=== PATIENT | male | born 1965 | race Caucasian/White ===

== ENCOUNTER 2017-06-27 18:16 | Emergency (ER) | payer MEDICAID, SELFPAY ==
[2017-06-27 18:17] VITALS: BP 167/143; PULSE 111; RESP 18; TEMP 35.6; O2SAT 98; BMI 43.1
[2017-06-27] MEDS: Etomidate 20 MG/10 ML Vial IV (18:20)
[2017-06-27] MEDS: Succinylcholine Chloride 200 MG/10 ML Vial 100 MG IV (18:20)
--- NOTE | 2017-06-27 18:21 | ED.RN ---
1819.ETOMIDATE 20 MG FLUSHED WITH [address] SAT [address] POLK INTUBATING. SAT REMAINS 97
--- NOTE | 2017-06-27 18:22 | ED.RN ---
100 OF SUCC FOLLLOWED BY 10 CC FLUSH
--- NOTE | 2017-06-27 18:23 | ED.RN ---
ATTEMPT TO INTUBATE. 93 % ON ROOM AIR . VOMIT AND BLOOD NOTED TO BACK OF THROAT
--- NOTE | 2017-06-27 18:23 | ED.RN ---
SIZE 16 ROMANSH ALFARO INSERTED. CLEAR YELLOW. 7 1/2 ET TUBE PLACED.25 AT THE LIP GOOD COLOR CHANGE. SAT AT 94.. 98 % WITH INCREASED BAGGING
[2017-06-27 18:25] VITALS: BP 167/143; PULSE 99; RESP 20; O2SAT 100
--- NOTE | 2017-06-27 18:26 | EKG12_ITS ---
Test Reason : UNRESPONSIVE Blood Pressure : / mmHG Vent. Rate : 095 BPM Atrial Rate : 095 BPM P-R Int : 132 ms QRS Dur : 096 ms QT Int : 368 ms P-R-T Axes : 045 035 041 degrees QTc Int : 462 ms Normal sinus rhythm Nonspecific T wave abnormality Prolonged QT Abnormal ECG Confirmed by FRANCK BOYD, LAXMI ([id number]), editor news SURENDRA PALACIO ([id number]) on 07/01/2017 1:12:21 PM Referred By: JAM Confirmed By:LAXMI JUÁREZ MD
--- NOTE | 2017-06-27 18:26 | CT_ITS ---
STUDY: CT BRAIN WITHOUT CONTRAST REASON FOR EXAM: Male, 52 years old. RADIATION DOSAGE (If Supplied By Facility): CTDIvol = ( 44.99 ) mGy, DLP = ( 880.47 ) mGycm TECHNIQUE: Transaxial CT imaging of the brain was performed without administration of intravenous contrast material. Individualized dose optimization techniques were used for this CT. COMPARISON: None. FINDINGS: Normal soft tissue structures. Normal calvarium. ET tube and NG tube in place. Normal size ventricles and extra-axial spaces for the patient's age. Normal white matter tracts of the cerebral hemispheres. Normal basal ganglia and thalami. Normal brainstem. Normal cerebellum. There is no intracranial hemorrhage. There are no findings of an acute ischemic infarction. There is mild ethmoid sinus disease. CT/Brain/Head without Contrast IMPRESSION: Normal unenhanced CT scan of the brain. Electronically Signed: Harley Bajwa MD at 19:27 EST , Service support ,
--- NOTE | 2017-06-27 18:26 | RAD_ITS ---
STUDY: X-RAY CHEST REASON FOR EXAM: Male, 52 years old. ETT PLACEMENT TECHNIQUE: Single AP portable view of the chest. COMPARISON: None. FINDINGS: There is a feeding tube/ nasogastric tube noted. The tip is not seen because it extends off the film. There is an endotracheal tube in place. The tip is 47 mm above the luis alberto. The lungs are clear and expanded. There is no demonstrated pleural abnormality. There is borderline cardiomegaly. Normal mediastinum and malik. Normal visualized pulmonary arteries. Normal visualized aortic arch and descending thoracic aorta. Normal visualized thoracic spine. Normal visualized ribs, clavicles, and shoulders. There is no demonstrated abnormality of the visualized soft tissue structures of the upper abdomen. RAD/Chest 1 View (Portable) IMPRESSION: Normal x-ray examination of the chest.There is a feeding tube/ nasogastric tube noted. The tip is not seen because it extends off the film. There is an endotracheal tube in place. The tip is 47 mm above the luis alberto. Electronically Signed: Harley Bajwa MD at 18:50 EST , Service support ,
--- NOTE | 2017-06-27 18:26 | CT_ITS ---
STUDY: CT CERVICAL SPINE WITHOUT CONTRAST REASON FOR EXAM: Male, 52 years old. FALL DOWN 7 STAIRS, TWISTED NECK RADIATION DOSAGE (If Supplied By Facility): CTDIvol = ( 26.06 ) mGy, DLP = ( 623.29 ) mGycm TECHNIQUE: High resolution transaxial imaging was performed without contrast material. Sagittal and coronal images were reconstructed. Individualized dose optimization techniques were used for this CT. COMPARISON: None FINDINGS: Normal craniovertebral junction. Normal anterior atlantoaxial articulation. Normal odontoid process. ET tube and NG tube in place. Normal cervical lordosis. Normal vertebral bodies and posterior osseous elements. C2-3: Normal endplates. Normal disc height and morphology. Normal central canal and intervertebral neuroforamina. C3-4: Normal endplates. Normal disc height and morphology. Normal central canal and intervertebral neuroforamina. C4-5: Normal endplates. Normal disc height and morphology. Normal central canal and intervertebral neuroforamina. C5-6: There is endplate spondylosis of the vertebral body. Vacuum disc phenomenon. Mild bilateral facet arthropathy. Mild loss of intervertebral disc height. No fracture. C6-7: Normal endplates. Normal disc height and morphology. Normal central canal and intervertebral neuroforamina. C7-T1: Normal endplates. Normal disc height and morphology. Normal central canal and intervertebral neuroforamina. Normal visualized soft tissue structures. CT/Spine Cervical without Contras IMPRESSION: Mild degenerative findings at C5-6. Electronically Signed: Harley Bajwa MD at 19:42 EST , Service support ,
[2017-06-27] MEDS: LORazepam 2 MG/ML Syringe IV (18:30)
--- NOTE | 2017-06-27 18:30 | ED.RN ---
ATIVAN 2 MG IV GIVEN. BILATERAL RESTRAINTS PLACED
[2017-06-27] MEDS: 0.9% Normal Saline 1,000 ML 150 ML IV (18:34)
[2017-06-27] MEDS: Propofol 10MG/Ml 1,000 MG/100 ML Bottle 4.329 MG CONT INF (18:34)
--- NOTE | 2017-06-27 18:34 | ED.RN ---
diprovan at 10mck/kg/min.. 8.6 mls per hr initiated
--- NOTE | 2017-06-27 18:38 | ED.RN ---
[address] medication list attempted per external hx of meds recently filled
--- NOTE | 2017-06-27 18:38 | ED.VISSUMM ---
- ER Visit Summary Date of Service: 06/27/17 Chief Complaint: Fall, head injury and decreased mental status History of Present Illness: The patient is a 52 M who is unable to give any history. Patient was brought in by EMS. Per the relief master patient was at a friend's house. He was walking down the steps inside the home. He fell from one level steps down to the landing. Against the wall. Later I spoke to the patient's friend. He states he witnessed the fall. Patient came out of the room somewhat positives acting differently want to walk down the steps fell down the steps and landed awkwardly on the bottom of the landing and against the wall. He became rigid and may have had a seizure after he ate his head. Was breathing. But he would not respond to them. Patient has no seizure history according to his daughter. Upon arrival to the paramedics he had a decreased mental status. He has agonal respirations. And his head and neck were positioned awkwardly against the wall. Patient has a past medical history of high cholesterol. Physical Examination: Initial blood pressure 167/143. Temperature pending. Heart rate 111. He was being bagged he was 98% on 100% 02 being bagged. Do not see any obvious signs of trauma to his face. He does have a laceration most likely a bite to the left anterior aspect of the front of his tongue. There is some blood in his mouth. Emesis in his posterior pharynx. His eyes are close his left pupil is dilated about 4 mm the right is 2 mm there are obviously different size. He is in a c-collar. He is backboarded. Being bagged his lungs are clear. Heart is tachycardic rate about 110 no murmur. Chest wall has no bruising or crepitance. No subcu air. Abdomen is obese but soft. No signs of trauma. External exam is unremarkable. He is moving both the right upper and right lower extremity. He has some movement of left lower extremity and he has not moved in all the left upper extremity. Test Results: Chest x-ray shows no acute abnormality. Normal cardiac silhouette. ET tube is in good position above the luis alberto. Both lungs are inflated. I do not see any obvious rib fractures. I do not see any obvious pneumothorax. And the OG appears to be in the stomach. CT of his brain shows no acute intracranial bleed at this time but formal radiology interpretation is pending. CT C-spine reading is pending. His CBC and BMP are unremarkable. His PT and INR are normal. Emergency Department Course and Treatment: Patient was emergently intubated shortly after arrival due to his overall mental status which was a [place] Coma Scale of about 3. Following no commands. Patient was given IV etomidate 20, IV succinylcholine 100 mg. Intubated on the first attempt with a 7F ET tube. Bilateral breath sounds were heard. His O2 saturation was around 90 and quickly went back up to 100 with bagging. C-spine traction was maintained during intubation. He was immediately put back in the c-collar. Treatment Plan: Patient be on IV sedation with propofol. He has been given 2 mg IV of Ativan. Disposition: Transfer to a level 1 trauma center. We have already contacted [facility] and due to weather conditions they are not flying. The patient will be have to be transferred by ground. He spoke to [facility] 1 trauma center and accepted the patient in transfer. Impression: Acute fall down steps. Acute closed head injury Decreased level of consciousness with a [place] Coma Scale of 3. ET intubation by the ER. Rule out seizure This note was generated with [employer] dictation software. It may contain incorrect words, spelling, and punctuation that were not noted in review of the chart prior to signing ED Disposition - Plan for ED Patient: Chief Complaint: Unresponsive Referrals: Yovany Mendiola [Primary Care Provider] -
--- NOTE | 2017-06-27 18:47 | ED.DCSUM_ITS ---
- ER Visit Summary Date of Service: 06/27/17 Chief Complaint: Fall, head injury and decreased mental status History of Present Illness: The patient is a 52 M who is unable to give any history. Patient was brought in by EMS. Per the power plant engineer patient was at a friend's house. He was walking down the steps inside the home. He fell from one level steps down to the landing. Against the wall. Later I spoke to the patient's friend. He states he witnessed the fall. Patient came out of the room somewhat positives acting differently want to walk down the steps fell down the steps and landed awkwardly on the bottom of the landing and against the wall. He became rigid and may have had a seizure after he ate his head. Was breathing. But he would not respond to them. Patient has no seizure history according to his daughter. Upon arrival to the paramedics he had a decreased mental status. He has agonal respirations. And his head and neck were positioned awkwardly against the wall. Patient has a past medical history of high cholesterol. Physical Examination: Initial blood pressure 167/143. Temperature pending. Heart rate 111. He was being bagged he was 98% on 100% 02 being bagged. Do not see any obvious signs of trauma to his face. He does have a laceration most likely a bite to the left anterior aspect of the front of his tongue. There is some blood in his mouth. Emesis in his posterior pharynx. His eyes are close his left pupil is dilated about 4 mm the right is 2 mm there are obviously different size. He is in a c-collar. He is backboarded. Being bagged his lungs are clear. Heart is tachycardic rate about 110 no murmur. Chest wall has no bruising or crepitance. No subcu air. Abdomen is obese but soft. No signs of trauma. External exam is unremarkable. He is moving both the right upper and right lower extremity. He has some movement of left lower extremity and he has not moved in all the left upper extremity. Test Results: Chest x-ray shows no acute abnormality. Normal cardiac silhouette. ET tube is in good position above the luis alberto. Both lungs are inflated. I do not see any obvious rib fractures. I do not see any obvious pneumothorax. And the OG appears to be in the stomach. CT of his brain shows no acute intracranial bleed at this time but formal radiology interpretation is pending. CT C-spine reading is pending. His CBC and BMP are unremarkable. His PT and INR are normal. Emergency Department Course and Treatment: Patient was emergently intubated shortly after arrival due to his overall mental status which was a [place] Coma Scale of about 3. Following no commands. Patient was given IV etomidate 20, IV succinylcholine 100 mg. Intubated on the first attempt with a 7F ET tube. Bilateral breath sounds were heard. His O2 saturation was around 90 and quickly went back up to 100 with bagging. C-spine traction was maintained during intubation. He was immediately put back in the c-collar. Treatment Plan: Patient be on IV sedation with propofol. He has been given 2 mg IV of Ativan. Disposition: Transfer to a level 1 trauma center. We have already contacted [facility] and due to weather conditions they are not flying. The patient will be have to be transferred by ground. He spoke to [facility] 1 trauma center and accepted the patient in transfer. Impression: Acute fall down steps. Acute closed head injury Decreased level of consciousness with a [place] Coma Scale of 3. ET intubation by the ER. Rule out seizure This note was generated with [employer] dictation software. It may contain incorrect words, spelling, and punctuation that were not noted in review of the chart prior to signing ED Disposition - Plan for ED Patient: Chief Complaint: Unresponsive Referrals: Yovany Mendiola [Primary Care Provider] -
[2017-06-27 18:50] VITALS: PULSE 94; RESP 19; O2SAT 98
[2017-06-27 18:51] LABS: Absolute Lymphocyte Count 1.76 X10^3/ul (0.83-4.51); Absolute Neutrophil Count 6.1 X10^3/uL (2.0-7.7); Basophil# 0.02 X10^3/uL; Basophil% 0.2 % (0-1); Eosinophil# 0.18 X10^3/uL; Eosinophils% 2.1 % (0-5); Hematocrit 40.9 % (40-54); Hemoglobin 13.6 g/dl (13.0-16.5); Lymphocyte # 1.76 X10^3/ul (4.0); Lymphocyte % 20.3 % (19-41); Mean Corp Hgb Conc 33.3 g/gl (32-36); Mean Corpuscular Hgb 30.2 pg (27.0-32.0); Mean Corpuscular Volume 90.9 fL (80-94); Mean Platelet Vol. 8.3 fl (6.2-12.0); Monocyte# 0.56 X10^3/uL; Monocyte% 6.5 % (0-10); Neutrophil # 6.11 X10^3/uL (2.7-7.7); Neutrophil % 70.3 % (47-70); Platelet Count 432 K/mm3 (150-450); RBC Distribution Width CV 13.1 % (11.6-14.6); RBC Distribution Width SD 43.3 fl (35.1-43.9); White Blood Count 8.7 K/mm3 (4.4-11.0)
[2017-06-27 18:52] LABS: POSITIVE COUNT NO; POSITIVE DIFFERENTIAL NO; POSITIVE MORPHOLOGY NO
[2017-06-27 18:53] LABS: International Normalized Ratio 1.1; Prothrombin Time (Protime)PT. 13.6 SECONDS (11.7-14.9)
[2017-06-27 18:54] LABS: Anion Gap 13 (5-15); BUN 19 mg/dL (7-18); BUN/Creat Ratio 14.8 RATIO (10-20); Calcium,Total 9.3 mg/dL (8.5-10.1); Chloride 96 mmol/L (98-107); Creatinine, Serum 1.28 mg/dL (0.70-1.30); EST Glomerular Filtration Rate 62 mL/min (>60); Est Glom Filt Rate - Afr Amer 75 mL/min (>60); Estimated Creatinine Clearance 72.41 ml/min; Glucose 226 mg/dL (74-106); Partial Thromboplast Time 28.9 Seconds (24.1-36.2); Potassium 3.9 mmol/L (3.5-5.1); Sodium Level 134 mmol/L (136-145)
--- NOTE | 2017-06-27 19:00 | ED.RN ---
belongings include black cellphone in brown pouch, green pocketknife,blue jeans,brown belt, information technology architect, medication unlabeled,tape measure,orange information technology architect, yellow knife,black knife, fingernail clippers, brown wallet on chain, large selection of keys,green long sleeve shirt cut, red ss shirt cut off,camo underware cut off, hair comb and brown shoes
[2017-06-27 19:08] VITALS: BP 122/81; PULSE 90; RESP 16; O2SAT 98
[2017-06-27 19:09] LABS: Alcohol, Blood (Medical)-Serum < 3.0 mg/dL
--- NOTE | 2017-06-27 19:12 | ED.RN ---
belongings to family
[2017-06-27] MEDS: Midazolam 5 MG/ML Syringe IV (19:26)
[2017-06-27 19:28] VITALS: BP 124/81; PULSE 93; RESP 15; O2SAT 98
[2017-06-27 19:33] VITALS: BP 124/81; PULSE 93; RESP 15; TEMP 36; O2SAT 98
== END 2017-06-27 19:35 | disposition short-term general hospital (02) ==
PROVIDERS: Emergency Medicine; Emergency Provider Emergency Medicine
DX: S09.90XA Unspecified injury of head, initial encounter (principal); W10.9XXA Fall (on) (from) unspecified stairs and steps, initial encounter; Y93.9 Activity, unspecified; Y92.009 Unspecified place in unspecified non-institutional (private) residence as the place of occurrence of the external cause; Y99.9 Unspecified external cause status; R40.2430 Glasgow coma scale score 3-8, unspecified time; E78.00 Pure hypercholesterolemia, unspecified; I10 Essential (primary) hypertension; Z72.0 Tobacco use
CPT/HCPCS: 31500; 51702; 70450; 71045; 72125; 80048; 80320; 85025; 85610; 85730; 93005; 94002; 99251; 99285; J7030; A4216; G0463; G0480; J0330

== ENCOUNTER 2017-11-01 09:30 | Outpatient (RCR) | payer MEDICAID, SELFPAY ==
--- NOTE | 2017-08-21 12:12 | HP.PTEVAL ---
Patient's Visit Information GABRIELLA HAZEL is a 52 year old M referred to Physical Therapy by Out of Town Doctor with a diagnosis of Intracranial hemorrhage, TBI, impaired cognition. Date of Evaluation: 08/21/17 Physical Therapist: Rosanna Schulz - Visit Plan Frequency: 3x /Week Duration: 4 Weeks Plan: 3X/ week for 4 weeks for gait training, balance training, LE strength, functional activities, coordination, motor planning with HEP - Subjective Subjective: Pt blacked out and fell down the stairs and hit head on the way down. He was taken to the hospital by squad and was in inpatient Rehab at [facility] and was in there for almost 2 months. He got out of [facility] last Sat. His brother lives with him and he watches out for him. He is using the walker when out and about and at home he uses the Quad cane in his house. He is not driving. His brother brings him to his appointments. He likes to sit around and watch movies all day. Sat and Mondays he goes and watches a friend of him bowl. Pt reports that he does not fall and he has pretty good balance. He feels weak sometimes in the morning. Stairs: he lives on one floor. He goes up 1 step onto his prch and holds onto something. He is unemployed at this time due to diabled due to DDD in back. He reports that he is having some trouble with memory. Pt reports that he showers in a shower chair. Pt then reports that he has fallen once and that was in the bedroom and landed on his back and it did not hurt too bad. Pt reports that he does not have a follow up with a Dr and he does not have a PCP but will try and get one set up. - Objective Gait: Walks into dept with a rolling walker with SBA. Walked about 75 feet with a WBQC with CGA to min A with wide base of support. Was able to walk without the walker with Odilon and WBOS and not as steady as with the WBQC. Stairs: Up and down stairs with 1 Quad cane and 1 railing going up the stairs with the L leg and descending stairs with a L cane with 2 feet to a stair. LE MMT:hip flex R 4-/5 and L 3+/5, knee ext B 4-/5, knee flex B 4-/5, hip abd L 3+/5 and R 4-/5. Pt was able to do a 1/2 normal ROM bridge. Heel and toe raise: unable to do unless uses UE support. sit to stand without use of his UE's with WBOS with minimal struggle. FGA 6. Tight gastroc and HS complex B - Balance Scores Functional Gait Assessment Score: 6 % Disability: 80.0000 - Goals Goal 1:: I HEP Goal Time Frame: 4-6 Weeks Goal 2:: Increase LE strength to 4/5 B hips and knees to increase ability to function at home Goal Time Frame: 4-6 Weeks Goal 3:: Increase balance to decrease fall risk (shoot for FGA of 12). Goal Time Frame: 4-6 Weeks Goal 4:: Be able to walk 250 feet with no AD with SBA without any signs of LOB Goal Time Frame: 4-6 Weeks - Rehabilitation Potential Rehabilitation Potential: Good - Anticipated Interventions Patient/Client Instruction: Educate patient on: Plan of Care For the Purpose of:: To improve muscle performance and motor function, To improve ability to perform ADL's, To increase tolerance to activity/condition/position, To improve performance and independence with ADL's, To improve ability of physical actions for home/community/work/leisure, To improve gait and locomotor functions, To improve balance, To improve safety with gait Therapeutic Exercise to Include: Strength training, Endurance training, Balance training, Coordination, Body mechanics, Flexibilty training, Gait and locomotor training, Passive ROM, Active ROM For the Purpose of:: To improve muscle performance and motor function, To improve ability to perform ADL's, To increase tolerance to activity/condition/position, To improve performance and independence with ADL's, To decrease level of supervision to perform tasks, To improve ability of physical actions for home/community/work/leisure, To improve gait and locomotor functions, To increase flexibility/ROM, To improve balance, To improve safety with gait Functional Training to Include: Gait training For the Purpose of:: To improve gait and locomotor functions, To improve safety with gait Thank you for the opportunity to evaluate your patient. For Medicare and Medicare HMO plans, please review the plan of care and approve it. It will need to be FAXED BACK to us at [phone] for Medicare purposes. Please let me know if there are questions or concerns regarding this plan of care. Physician Signature: Date:
--- NOTE | 2017-09-26 18:21 | HP.SP.DC ---
ST Discharge Summary - Discharged: Discharge: Pt. presents with mild cognitive deficits in line with reported baseline cognitive abilities following a previous traumatic brain injury (1997) recently complicated by a recent intracranial hemorrhage resulting in a prolonged hospitalization. Discussed results and recommendations following the cognitive communication assessments, and anticipated therapeutic goals, though the Pt. reporting assessment results were similar to expected results if the assessment were to be completed prior to the most recent hospitalization, and were actually better than he had anticipated, and expressed desires to discharge from skilled speech-language intervention, preferring to focus on social activities and physical therapy. Encouraged the Pt. to contact his primary care physician if any changes in cognitive communication abilities are noted, as the Pt. would be appropriate for intervention if deficits are noted that complicate daily functioning. Pt. expressing agreement and understanding. Will discharge from caseload this date.
--- NOTE | 2017-11-01 09:59 | HP.PTDCSUM ---
HP - PT D/C Summary It has been my pleasure to treat GABRIELLA HAZEL under orders from IZABELA COLEY, for the diagnosis of Intracranial hemorrhage, TBI, impaired cognition for a total of 10 visit(s). Discharge Date: 11/01/17 Please see the following information for a summary of their discharge status. - Subjective Subjective: Pt reports that he is doing a lot better and is hoping to be done with us. He reports that he can walk around the house without the walking stick and that he can step down off the front porch without the use of any railing. Pt reports that he is not having any trouble with anything. Pt has been doing sit to stands from a chair on his porch. Back to small gardening.... - Overall Improvement % Improvement: 90 - Objective Objective/Function: Gait: able to walk complet lap around dept 340 feet without AD and without veering. LE MMT: B hip flex 4-/5, B hip abd 4-/5, full complete bridge, B knee flex and knee ext 4+/5. FGA: 22 - Goals Goal 1:: I HEP Goal Progress: Goal Met Goal 2:: Increase LE strength to 4/5 B hips and knees to increase ability to function at home Goal Progress: Progressing Goal 3:: Increase balance to decrease fall risk (shoot for FGA of 12). Goal Progress: Goal Met Goal 4:: Be able to walk 250 feet with no AD with SBA without any signs of LOB Goal Progress: Goal Met - Plan Plan: DC PT to HEP. Issued Standing kitchen sink hip flex and standing hip abd - D/C Information Discharge Comments: DC TO HEP If there are questions or concerns regarding this patient's physical therapy, please feel free to call me at [phone]. Thank you for the referral of this patient. Sincerely, Rosanna Schulz
== END 2017-11-01 19:00 | disposition home or self-care (01) ==
LOC: PT 09:30
DX: I69.228 Other speech and language deficits following other nontraumatic intracranial hemorrhage (principal); Z86.79 Personal history of other diseases of the circulatory system; S06.9X0D Unspecified intracranial injury without loss of consciousness, subsequent encounter; R41.89 Other symptoms and signs involving cognitive functions and awareness; I10 Essential (primary) hypertension; E78.2 Mixed hyperlipidemia; J96.01 Acute respiratory failure with hypoxia; G93.40 Encephalopathy, unspecified; T14.90XD Injury, unspecified, subsequent encounter
CPT/HCPCS: 92507; 92523; 97110; 97161; 97530

== ENCOUNTER 2018-01-03 21:26 | Observation (INO) | payer MEDICAID, SELFPAY ==
[2018-01-03 21:27] VITALS: BP 146/93; PULSE 90; RESP 16; TEMP 37.2; O2SAT 99; BMI 28.2
[2018-01-03 22:26] VITALS: BP 142/89; PULSE 80; RESP 12; O2SAT 99
[2018-01-03 22:36] LABS: Absolute Lymphocyte Count 0.81 X10^3/ul (0.83-4.51); Absolute Neutrophil Count 7.7 X10^3/uL (2.0-7.7); Basophil# 0.01 X10^3/uL; Basophil% 0.1 % (0-1); Eosinophil# 0.12 X10^3/uL; Eosinophils% 1.3 % (0-5); Hematocrit 40.9 % (40-54); Hemoglobin 13.4 g/dl (13.0-16.5); Lymphocyte # 0.81 X10^3/ul (4.0); Lymphocyte % 8.9 % (19-41); Mean Corp Hgb Conc 32.8 g/gl (32-36); Mean Corpuscular Hgb 30.4 pg (27.0-32.0); Mean Corpuscular Volume 92.7 fL (80-94); Mean Platelet Vol. 8.4 fl (6.2-12.0); Monocyte# 0.47 X10^3/uL; Monocyte% 5.2 % (0-10); Neutrophil # 7.67 X10^3/uL (2.7-7.7); Neutrophil % 84.3 % (47-70); Platelet Count 445 K/mm3 (150-450); RBC Distribution Width CV 14.2 % (11.6-14.6); RBC Distribution Width SD 48.2 fl (35.1-43.9); Red Blood Count 4.41 M/mm3 (4.6-6.2); White Blood Count 9.1 K/mm3 (4.4-11.0)
[2018-01-03 22:37] LABS: POSITIVE COUNT NO; POSITIVE DIFFERENTIAL NO; POSITIVE MORPHOLOGY NO
[2018-01-03 22:44] LABS: ALB/GLOB Ratio 0.9 RATIO (0.9-2.4); AST(SGOT) 9 U/L (15-37); Alanine Aminotransfer ALT/SGPT 10 U/L (16-61); Albumin, Serum 3.6 g/dL (3.2-5.0); Alkaline Phosphatase 80 U/L (45-117); Anion Gap 14 (5-15); BUN 10 mg/dL (7-18); BUN/Creat Ratio 11.4 RATIO (10-20); Calcium,Total 9.1 mg/dL (8.5-10.1); Chloride 104 mmol/L (98-107); Creatinine, Serum 0.88 mg/dL (0.70-1.30); EST Glomerular Filtration Rate 96 mL/min (>60); Est Glom Filt Rate - Afr Amer 116 mL/min (>60); Estimated Creatinine Clearance 99.08 ml/min; Globulin 3.8 g/dL (2.2-4.2); Glucose 103 mg/dL (74-106); Potassium 3.3 mmol/L (3.5-5.1); Protein, Total 7.4 g/dL (6.4-8.2); Sodium Level 144 mmol/L (136-145)
[2018-01-03 22:47] LABS: Bacteria 0 SEEN /hpf (None Seen); Red Blood Cells-Urine 0 SEEN /hpf (0-5); Squamous Epithelial Cells - UA 0 SEEN /hpf (0-5)
[2018-01-03 22:55] LABS: Color, Urine Amber (Yellow); Glucose, Dipstick Normal (Normal); Ketone-Dipstick 50 mg/dl (Negative); Leukocyte Esterase-Dipstick 25 /ul (Negative); Nitrite-Dipstick Negative (Negative); Occult Blood-Urine 10 /ul (Negative); Protein-Dipstick 30 mg/dl (Negative); Specific Gravity, Urine 1.025 (1.002-1.030); Urine Clarity Sl. Cloudy (Clear); Urine Urobilinogen 4 mg/dl (Normal)
--- NOTE | 2018-01-03 23:01 | ED.DCSUM_ITS ---
- ER Visit Summary Date of Service: 01/03/18 Chief Complaint: Not caring for himself History of Present Illness: The patient is a 52 M with no primary care physician. Family reports that since he fell in June he has been much different. At that time he had a traumatic brain injury with tiny bleeds. He had a seizure at that time and was on medications for this. He has run out of these and has not followed up with her primary care physician. His brother was staying with him until October and then was kicked out. Since that time the patient is not caring for himself at all. EMS was called to his house [place]. They report the house is in disarray. There is a dog that is in early stages of decomposition in the house. The patient clearly has not showered for days. He has stooled in his pants and is still wearing these. Review of systems: General: No fever, chills, cold sweats. Cardiovascular: No chest pain, palpitations. Respiratory: No shortness of breath, dyspnea on exertion. Gastrointestinal: No abdominal pain, nausea, vomiting, diarrhea, melena, or hematochezia. Genitourinary: No dysuria, frequency, hematuria. Skin: No rash. Neuro: No headache, numbness, weakness. Physical Examination: Vitals: Stable. Afebrile. General: Well-nourished and well-developed. Unkempt. Head: Normocephalic atraumatic. Neck: Supple, no lymphadenopathy. No JVD. Nontender. Cardiovascular: Regular rate and rhythm. No murmurs. Respiratory: No respiratory distress. Clear to auscultation bilaterally. Abdominal: Soft, nontender, nondistended, normal bowel sounds. No guarding, rebound, or peritoneal signs. Back: Nontender. Extremities: Nontender, no edema. Skin: Normal color, no rash. Neurologic: Alert and oriented ?3. Cranial nerves II through XII are intact. Normal strength and sensation. Psych: Normal affect. Test Results: CT head shows no acute disease. EKG is sinus at 80 with no acute changes. UA is negative. LFTs marked for an ALT of 10 and AST of 9. Chem-7 marked potassium 3.3. Blood alcohol level is 0. CBC is marked for segment neutrophils 84 lymphs lites of 9. Emergency Department Course and Treatment: Patient was taken out of his dirty clothes. He was allowed to shower here. We did contact Adult Protective Services and had to leave a message. Treatment Plan: Clearly the patient cannot care for himself at home. He will be admitted to the hospital overnight and seen by case management to find community resources. Disposition: Admitted in stable condition. Impression: 1. Inability to care for himself. 2. History of traumatic brain injury. This note was generated with [employer] dictation software. It may contain incorrect words, spelling, and punctuation that were not noted in review of the chart prior to signing ED Disposition - Plan for ED Patient: Chief Complaint: Mental Health Referrals: Care Physician,No Primary [Primary Care Provider] -
[2018-01-03 23:02] LABS: Urine Bilirubin Dipstick 3 mg/dL (Negative)
[2018-01-03 23:03] LABS: Calcium Oxalate Crystals Ur RARE /hpf (<or=2+); Mucous, Urine 2+ /hpf (<or=2+); White Blood Cells 0-5 SEEN /hpf (0-5)
--- NOTE | 2018-01-03 23:49 | ED.RN ---
[facility], new clothing given to patient at this time
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
--- NOTE | 2018-01-03 23:57 | PCM.HP.STD ---
Problem List (1) Traumatic brain injury Status: Chronic (2) Seizure disorder Status: Chronic (3) Recurrent falls Status: Chronic (4) Failure to thrive Status: Acute (5) Moderate protein-calorie malnutrition Status: Chronic History of Present Illness Date of Admission: 01/04/18 Chief Complaint: Patient not able to take care of himself The patient is a 52 year old M with history of traumatic brain injury secondary to fall with tiny intracranial bleed for which she was admitted in [facility] for 10 days, intubated and then discharged to SNF from where he returned home in August 2017. As per her daughter near the bedside, he was taking care of himself for about 1 month and then later slowly deteriorated with regard to nutrition, physical activity, activities of daily living. Patient has gait disequilibrium and uses cane. He did not respond to the telephone to call. Later today, daughter entered into the house after getting saldaña from the neighbor she has found house in total disarray, decomposed dog and patient with the stool is spent not able to take care of himself. It seems that patient has not taken shower and not able to proper nutrition for days. He admitted that he has urinary and fecal incontinence. He has poor oral hygienic with gingivitis. In ED, he was found in bed order with poor general condition. Vitals are stable. EKG shows normal sinus rhythm. [] Past Medical History Past Medical History (Chronic Problems): Chronic Problems Traumatic brain injury (Chronic) Seizure disorder (Chronic) Recurrent falls (Chronic) Moderate protein-calorie malnutrition (Chronic) Allergies latex Allergy (Verified 01/03/18 21:27) Rash Penicillins Allergy (Verified 01/03/18 21:27) Swelling Home Medications: Ambulatory Orders Medication Instructions Recorded Aspirin [Aspirin, Baby] 81 mg PO DAILY@0800 06/02/16 Gemfibrozil [Lopid] 600 mg GT BIDAC 06/02/16 Lisinopril/Hydrochlorothiazide 1 tablet PO DAILY 06/02/16 [Zestoretic Tablet] Smoking Status: Unknown if ever smoked Review of Systems Constitutional: Reports: Anorexia, Weakness, Fatigue HEENT: Denies: Head Aches, Sinus Congestion, Sinus Drainage Cardiovascular: Denies: Chest Pain, Palpitations Respiratory: Denies: Shortness of breath at rest, Sputum production Gastrointestinal: Denies: Abdominal Pain, Nausea, Vomiting Genitourinary: Reports: Incontinence. Denies: Dysuria Musculoskeletal: Reports: Joint swelling Skin: Denies: Rash, Wounds Neurological: Reports: Balance problems, Incoordination Psychiatric: Denies: Depression, Homicidal Ideations, Suicidal Ideations Hematologic/ Lymphatic: Denies: Easy Bruising, Easy Bleeding Unable to obtain accurate/complete ROS d/t: Patient symptoms difficulty in understanding VTE Information - Inpt Only VTE Present on Admission: No VTE Mechan Device Prophylaxis: None VTE Pharm Prophylaxis ordered?: Yes Patient Problems: Active and Suspected Problems Failure to thrive (Acute) - Physical Exam General: Alert, Oriented x3, Cooperative HEENT: Atraumatic, PERRLA, EOMI, Normocephalic Oral: Dry Mucosa Neck: Supple, No JVD, Negative Carotid Bruits Lungs: Clear to auscultation, No rhonchi, No wheeze, No rales, Diminished Cardiovascular: Regular rate, Regular Rhythm, Normal S1, Normal S2, No murmurs Abdomen: Bowel Sounds Present, Soft, Non Tender, Non-Distended Extremities: Capillary Refill Less than 3 Seconds, Edema Skin: No rashes, No breakdown Musculoskeletal: No Tenderness to Palpation of Joints or Extremities, Arthritic Changes, Muscle Wasting Neurological: Cranial nerves II-XII grossly intact, - - Slow to respond Psych/Mental Status: Normal Affect, Appropriate Vital Signs Temp Pulse Resp BP Pulse Ox 99 F 80 12 142/89 H 99 01/03/18 21:27 01/03/18 22:26 01/03/18 22:26 01/03/18 22:26 01/03/18 22:26 Oxygen Delivery Method Room Air Weight: 196 lb 9.6 oz Body Mass Index (BMI) 28.2 Laboratory Tests Past 24 Hrs 01/03/18 01/03/18 01/03/18 22:15 22:15 22:15 WBC 9.1 RBC 4.41 L Hgb 13.4 Hct 40.9 MCV 92.7 MCH 30.4 MCHC 32.8 RDW 14.2 RDW Differential 48.2 H Plt Count 445 MPV 8.4 Immature Gran % (Auto) 0.200 Neut % (Auto) 84.3 H Lymph % (Auto) 8.9 L [place] % (Auto) 5.2 Eos % (Auto) 1.3 Baso % (Auto) 0.1 Absolute Neuts (auto) 7.7 Absolute Lymphs (auto) 0.81 L Total Counted Not Reportable Sodium 144 Potassium 3.3 L Chloride 104 Carbon Dioxide 26.0 Anion Gap 14 BUN 10 Creatinine 0.88 Estim Creat Clear Calc 99.08 Est GFR (MDRD) Af Amer 116 Est GFR (MDRD) Non-Af 96 BUN/Creatinine Ratio 11.4 Glucose 103 Calcium 9.1 Total Bilirubin 0.50 AST 9 L ALT 10 L Alkaline Phosphatase 80 Total Protein 7.4 Albumin 3.6 Globulin 3.8 Albumin/Globulin Ratio 0.9 Urine Color Urine Clarity Urine pH Ur Specific [place] Urine Protein Urine Glucose (UA) Urine Ketones Urine Occult Blood Urine Nitrite Urine Bilirubin Urine Urobilinogen Ur Leukocyte Esterase Urine RBC Urine WBC Ur Squamous Epith Cells Calcium Oxalate Crystal Urine Bacteria Urine Mucus Ethyl Alcohol 13.0 01/03/18 22:40 WBC RBC Hgb Hct MCV MCH MCHC RDW RDW Differential Plt Count MPV Immature Gran % (Auto) Neut % (Auto) Lymph % (Auto) [place] % (Auto) Eos % (Auto) Baso % (Auto) Absolute Neuts (auto) Absolute Lymphs (auto) Total Counted Sodium Potassium Chloride Carbon Dioxide Anion Gap BUN Creatinine Estim Creat Clear Calc Est GFR (MDRD) Af Amer Est GFR (MDRD) Non-Af BUN/Creatinine Ratio Glucose Calcium Total Bilirubin AST ALT Alkaline Phosphatase Total Protein Albumin Globulin Albumin/Globulin Ratio Urine Color Terrie Urine Clarity Sl. Cloudy Urine pH 6.0 Ur Specific [place] 1.025 Urine Protein 30 H Urine Glucose (UA) Normal Urine Ketones 50 H Urine Occult Blood 10 H Urine Nitrite Negative Urine Bilirubin 3 H Urine Urobilinogen 4 H Ur Leukocyte Esterase 25 H Urine RBC 0 SEEN Urine WBC 0-5 SEEN Ur Squamous Epith Cells 0 SEEN Calcium Oxalate Crystal RARE Urine Bacteria 0 SEEN Urine Mucus 2+ Ethyl Alcohol Assessment/Plan All Active Problems Failure to thrive (Acute) The patient is a 52 year old M with history of traumatic brain injury secondary to fall with tiny intracranial bleed for which she was admitted in [facility] for 10 days, intubated and then discharged to SNF from where he returned home in August 2017. As per her daughter near the bedside, he was taking care of himself for about 1 month and then later slowly deteriorated with regard to nutrition, physical activity, activities of daily living. Patient has gait disequilibrium and uses cane. He did not respond to the telephone to call. Later today, daughter entered into the house after getting saldaña from the neighbor she has found house in total disarray, decomposed dog and patient with the stool is spent not able to take care of himself. It seems that patient has not taken shower and not able to proper nutrition for days. He admitted that he has urinary and fecal incontinence. He has poor oral hygienic with gingivitis. In ED, he was found in bed order with poor general condition. Vitals are stable. EKG shows normal sinus rhythm. 1. Generalized weakness, failure to thrive: Patient has moderate protein calorie mentation and is not able to take care of himself. Compromised activities of daily living including walking, fecal and urine incontinence. Patient is being admitted on [facility] floor. IV fluid half-normal saline with 20 mg of KCl. customer support manager consult. PT OT. Boss Dyer consult. CK ordered. Pre-albumin ordered. Stool softeners ordered. Patient needs SNF placement. 2. Moderate protein calorie malnutrition with poor oral hygiene: Needs nursing care. Nutritional supplement. 3. Mild hypokalemia: Potassium being replaced. 4. History of traumatic brain injury with intracranial bleed and seizure disorder: As per the home medications he is not on any antiseizure medications. 5. Hypertension, dyslipidemia: Continue home medication including aspirin, Lopid. Hold antihypertensive medications but follow the blood pressure trends. Blood pressure gets high, resume antihypertensive medication. DVT prophylaxis on Lovenox 40 mils subcu daily. [] Laboratory Results 01/03/18 22:15: WBC 9.1, RBC 4.41 L, Hgb 13.4, Hct 40.9, MCV 92.7, MCH 30.4, MCHC 32.8, RDW 14.2, RDW Differential 48.2 H, Plt Count 445, MPV 8.4, Immature Gran % (Auto) 0.200, Neut % (Auto) 84.3 H, Lymph % (Auto) 8.9 L, [place] % (Auto) 5.2, Eos % (Auto) 1.3, Baso % (Auto) 0.1, Absolute Neuts (auto) 7.7, Absolute Lymphs (auto) 0.81 L, Total Counted Not Reportable 01/03/18 22:15: Sodium 144, Potassium 3.3 L, Chloride 104, Carbon Dioxide 26.0, Anion Gap 14, BUN 10, Creatinine 0.88, Estim Creat Clear Calc 99.08, Est GFR (MDRD) Af Amer 116, Est GFR (MDRD) Non-Af 96, BUN/Creatinine Ratio 11.4, Glucose 103, Calcium 9.1, Total Bilirubin 0.50, AST 9 L, ALT 10 L, Alkaline Phosphatase 80, Total Protein 7.4, Albumin 3.6, Globulin 3.8, Albumin/Globulin Ratio 0.9 01/03/18 22:15: Ethyl Alcohol 13.0 01/03/18 22:40: Urine Color Terrie, Urine Clarity Sl. Cloudy, Urine pH 6.0, Ur Specific [place] 1.025, Urine Protein 30 H, Urine Glucose (UA) Normal, Urine Ketones 50 H, Urine Occult Blood 10 H, Urine Nitrite Negative, Urine Bilirubin 3 H, Urine Urobilinogen 4 H, Ur Leukocyte Esterase 25 H, Urine RBC 0 SEEN, Urine WBC 0-5 SEEN, Ur Squamous Epith Cells 0 SEEN, Calcium Oxalate Crystal RARE, Urine Bacteria 0 SEEN, Urine Mucus 2+ Code Visit OBSV E&M: 51024 Initial observation care L3
[2018-01-04 01:01] VITALS: BP 143/79; PULSE 67; RESP 16; TEMP 36.9; O2SAT 100
[2018-01-04 01:10] VITALS: BMI 28.2
[2018-01-04 02:00] VITALS: BMI 27.1
[2018-01-04] MEDS: Enoxaparin 40 MG/0.4 ML Syringe SC (03:18)
[2018-01-04 05:37] VITALS: BP 130/74; PULSE 68; RESP 14; TEMP 37; O2SAT 99
[2018-01-04 07:42] LABS: Anion Gap 12 (5-15); BUN 12 mg/dL (7-18); BUN/Creat Ratio 16.9 RATIO (10-20); CPK Total, Creatine Kinase 21 U/L (39-308); Calcium,Total 8.3 mg/dL (8.5-10.1); Chloride 107 mmol/L (98-107); Creatinine, Serum 0.71 mg/dL (0.70-1.30); EST Glomerular Filtration Rate 122 mL/min (>60); Est Glom Filt Rate - Afr Amer 148 mL/min (>60); Estimated Creatinine Clearance 122.81 ml/min; Glucose 120 mg/dL (74-106); Potassium 3.4 mmol/L (3.5-5.1); Prealbumin 11.1 mg/dL (20.0-40.0); Sodium Level 146 mmol/L (136-145)
--- NOTE | 2018-01-04 08:46 | CASEMGMT ---
Social Work Assessment Referral date: 01/03 Date of Assessment: 01/04 Reason for Consult: Self Neglect (d/t age cannot make APS report) Informant: Marbin Bo MD Personal Status: Pt presents with blunted affect as evidenced by normal amplitude but very limited range of emotional expression. Pt is slow to respond, but comprehends context of conversation and responds appropriately. A&Ox4. Reports to live alone in a first level apartment with approximately 2 steps to enter and no handrails. Pt denies use of DME or any DME in the home, but does use a walking stick. Denies that this is a cane, but reports that he would use one if he had one. Inform that PT/OT has been ordered and if they recommend use of DME SW can assist with ordering for home use. Inquire if PT/OT would indicate further need for inpatient skilled therapy if the pt would be agreeable and he states he would and his first choice would be [facility]. Pt suffered a fall earlier this year and sustained a TBI. He went to [facility] following this and was discharged in August of this year. Denies any difficulty with ADL's. Upon further questioning he admits that he has not been cooking, and denies having any services such as MOW. Continues to deny difficulty with dressing, bathing, etc. Review his presentation upon arrival to ED, and pt remains silent. Pt claims that he does have Medicaid - [employer] through [employer]. Denies any income source. Pt denies being employed prior to TBI. States that his niece assisted him in applying for disability, but he has not heard back from her regarding any further updates or need for further questioning regarding application process. Pt reports to have family that lives locally such as two brothers, his mother, and his daughter. His daughter, her fiance, and her three boys are presently at [facility] [facility]. States that they are working to find a place, and if they find one big enough they are hoping to move the pt in with them. Will continue to follow and assist and await for PT/OT evaluations for assistance with determining discharge plan. Substance Abuse Hx: Alcohol: Yes Pt reports hx of alcohol abuse. 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 Denies going to inpatient treatment and claims to have gone to AA. Denies any other drug use history. Mental Health Hx: Pt denies any mental health diagnoses. Denies seeing a counselor or psychiatrist. Review depression and anxiety symptoms and the pt denies any symptoms within the past two weeks. Denies SI or HI. Interventions: Initial assessment complete to identify potential psychosocial needs. SW to provide pt and family with additional information on disability. Resources - [employer], [employer], MOW, Counseling Services. Await PT/OT evaluation to assist with determination for discharge needs. Left referral on TCU/RU vm for potential RU candidate. Plan: SHIREEN Paredes, CORPORATE PLANNER, LEGAL COLLECTOR
[2018-01-04] MEDS: Aspirin 81 MG TAB.CHEW PO (09:18)
[2018-01-04] MEDS: Gemfibrozil 600 MG Tablet PO ×2 (09:18→17:16)
[2018-01-04 09:20] VITALS: BP 138/82; PULSE 71; RESP 18; TEMP 36.6; O2SAT 95
[2018-01-04] MEDS: 0.9% NaCl Peripheral Flush Adult/Peds IV ×3 (09:20→21:41)
--- NOTE | 2018-01-04 10:12 | PCM.PN.HOSP ---
Patient Problems: Active and Suspected Problems Failure to thrive (Acute) Subjective: States that he is not following at home. Denies any new weakness. Objective: It was noted to have several bedbugs on him was taken to another room in the previous room was sealed off. Vitals/I&O's: Vital Signs Temp Pulse Resp BP Pulse Ox 37.0 C 68 14 130/74 H 99 01/04/18 05:37 01/04/18 05:37 01/04/18 05:37 01/04/18 05:37 01/04/18 05:37 Oxygen Delivery Method Room Air Weight: 85.8 kg Body Mass Index (BMI) 27.1 Intake and Output for Last 24 Hours 01/02/18 01/03/18 01/04/18 23:59 23:59 23:59 Intake Total 400 / 400 Balance 400 / 400 General: No apparent distress, - - Slightly disheveled HEENT: Atraumatic, Normocephalic Oral: Moist Mucosa, - - Poor dentition Extremities: No edema, No Calf Tenderness Skin: No rashes, No breakdown Neurological: Motor Exam 5/5 strength throughout, Coordination normal, - - Finger to nose intact Psych/Mental Status: Normal Affect, Appropriate Laboratory Results 01/04/18 06:55: Sodium 146 H, Potassium 3.4 L, Chloride 107, Carbon Dioxide 27.0, Anion Gap 12, BUN 12, Creatinine 0.71, Estim Creat Clear Calc 122.81, Est GFR (MDRD) Af Amer 148, Est GFR (MDRD) Non-Af 122, BUN/Creatinine Ratio 16.9, Glucose 120 H, Calcium 8.3 L, Total Creatine Kinase 21 L, Prealbumin 11.1 L Current Medications Al Hydroxide/Mg Hydroxide (Mylanta Ii) 30 ml PO Q6H PRN PRN PRN Reason: Gastric burning Aspirin (Aspirin, Baby) 81 mg PO DAILY@0800 [facility] Last Admin: 01/04/18 09:18 Dose: 81 mg Enoxaparin Sodium (Lovenox) 40 mg SC DAILY@1000 [facility] Last Admin: 01/04/18 09:18 Dose: 40 mg Gemfibrozil (Lopid) 600 mg PO BIDAC [facility] Last Admin: 01/04/18 09:18 Dose: 600 mg Potassium Chloride/Sodium Chloride (Kcl 20meq In 0.45% Ns 1000ml) 1,000 mls @ 100 mls/hr IV .Q10H [facility] Stop: 01/04/18 10:19 Last Admin: 01/04/18 01:19 Dose: 100 mls/hr Nutritional Formula (Vinicio - [place] Flavor) 1 packet PO TIDCM [facility] Last Admin: 01/04/18 09:18 Dose: 1 packet Nutritional Formula (Lactose Free) (Ensure Enlive) 120 ml PO 4X/DAY [facility] Last Admin: 01/04/18 09:18 Dose: 120 ml Ondansetron HCl (Zofran) 4 mg IV Q8H PRN PRN PRN Reason: NAUSEA Oxycodone HCl (Oxyir) 5 mg PO Q4H PRN PRN PRN Reason: MOD-SEVERE PAIN (4-10/10) Psyllium Hydrophilic Mucilloid (Metamucil) 1 packet PO DAILY PRN PRN PRN Reason: CONSTIPATION Senna/Docusate Sodium (Senokot-S, Dee-Colace) 2 tablet PO BID PRN PRN PRN Reason: contipation Sodium Chloride () 5 - 30 ml IV UD PRN PRN Reason: SALINE FLUSH Last Admin: 01/04/18 09:20 Dose: 10 ml Medical Necessity - Tobacco Use Smoking Status: Former smoker Assessment/Plan All Active Problems Failure to thrive (Acute) 1. Failure to thrive Patient's home is in disarray and concerns are patient not adequately able to care for himself. Patient be evaluated by physical therapy and see if he would be a candidate for half-way facility Patient is open to going to a half-way facility if he qualifies for it. Patient has some good cursory strength on my logic assessment of him but physical therapy will help determine if he has any skillable needs. 2. Bedbug infestation No treatment Other than having field attendant go out to his house and treat that 3. DVT prophylaxis with Lovenox 4. Moderate protein malnutrition Prealbumin of 11 Started on supplements Code Visit Inpatient E&M: 94639 Subs Hosp L2
[2018-01-04 15:45] VITALS: BP 136/76; PULSE 66; RESP 18; TEMP 37.3; O2SAT 98
[2018-01-04] MEDS: traZODone 50 MG Tablet PO (21:41)
[2018-01-04 21:47] VITALS: BP 156/89; PULSE 67; RESP 18; TEMP 37.2; O2SAT 99
[2018-01-05 03:47] VITALS: BP 120/79; PULSE 68; RESP 16; TEMP 36.6; O2SAT 95
[2018-01-05] MEDS: Gemfibrozil 600 MG Tablet PO ×2 (06:58→16:42)
[2018-01-05] MEDS: Aspirin 81 MG TAB.CHEW PO (07:57)
[2018-01-05] MEDS: Enoxaparin 40 MG/0.4 ML Syringe SC (07:58)
[2018-01-05 08:00] VITALS: BP 115/70; PULSE 69; RESP 16; TEMP 36.8; O2SAT 100
--- NOTE | 2018-01-05 09:47 | PCM.PN.HOSP ---
Patient Problems: Active and Suspected Problems Failure to thrive (Acute) Subjective: Patient is daughter in the room and but his history. But states that after his traumatic brain injury patient multiple bleeds and then went to rehab. But since being at rehab at home patient has demonstrated profound inability to care for himself. Patient would have appointments for rehab or doctor's visits and then when he had a reminder calls. Patient would not recall canceling a more even having the appointments to begin with. Patient would be swelling himself and. Patient had a responsibility of caring for here because her nephew's dog and but when the family had heard from and went to his house they had noticed the dog was . Stated the dog was about 8 years old and was not previously known to be ill. They feel that it was due to neglect. And they think it at least a week prior because it was so putrid. Vitals/I&O's: Vital Signs Temp Pulse Resp BP Pulse Ox 36.8 C 69 16 115/70 100 01/05/18 08:00 01/05/18 08:00 01/05/18 08:00 01/05/18 08:00 01/05/18 08:00 Oxygen Delivery Method Room Air Weight: 85.8 kg Body Mass Index (BMI) 27.1 Intake and Output for Last 24 Hours 01/03/18 01/04/18 01/05/18 23:59 23:59 23:59 Intake Total 3128 / 3128 190 / 190 Output Total 0 / 0 Balance 3128 / 3128 190 / 190 General: Alert, - - Oriented ?2 HEENT: Atraumatic, Normocephalic Neck: No Nodes, Thyroid Normal Size and Texture Lungs: Clear to auscultation, Normal air movement, No rhonchi, No wheeze Cardiovascular: Regular rate, Regular Rhythm, Normal S1, Normal S2, No murmurs Abdomen: Bowel Sounds Present, Soft, Non Tender, Non-Distended, No Hepato-splenomegaly Extremities: No edema, No Calf Tenderness Current Medications Al Hydroxide/Mg Hydroxide (Mylanta Ii) 30 ml PO Q6H PRN PRN PRN Reason: Gastric burning Aspirin (Aspirin, Baby) 81 mg PO DAILY@0800 [facility] Last Admin: 01/05/18 07:57 Dose: 81 mg Enoxaparin Sodium (Lovenox) 40 mg SC DAILY@1000 [facility] Last Admin: 01/05/18 07:58 Dose: 40 mg Gemfibrozil (Lopid) 600 mg PO BIDAC [facility] Last Admin: 01/05/18 06:58 Dose: 600 mg Nutritional Formula (Vinicio - [place] Flavor) 1 packet PO TIDCM [facility] Last Admin: 01/05/18 07:58 Dose: 1 packet Nutritional Formula (Lactose Free) (Ensure Enlive) 120 ml PO 4X/DAY [facility] Last Admin: 01/05/18 07:58 Dose: 120 ml Ondansetron HCl (Zofran) 4 mg IV Q8H PRN PRN PRN Reason: NAUSEA Oxycodone HCl (Oxyir) 5 mg PO Q4H PRN PRN PRN Reason: MOD-SEVERE PAIN (4-1010) Psyllium Hydrophilic Mucilloid (Metamucil) 1 packet PO DAILY PRN PRN PRN Reason: CONSTIPATION Senna/Docusate Sodium (Senokot-S, Dee-Colace) 2 tablet PO BID PRN PRN PRN Reason: contipation Sodium Chloride () 5 - 30 ml IV UD PRN PRN Reason: SALINE FLUSH Last Admin: 01/04/18 21:41 Dose: 10 ml Trazodone HCl (Desyrel) 50 mg PO QHS PRN PRN PRN Reason: INSOMNIA Last Admin: 01/04/18 21:41 Dose: 50 mg Medical Necessity - Tobacco Use Smoking Status: Former smoker Assessment/Plan All Active Problems Failure to thrive (Acute) 1. Failure to thrive Patient's home is in disarray and concerns are patient not adequately able to care for himself. Patient be evaluated by physical therapy and see if he would be a candidate for jail facility Patient is open to going to a jail facility if he qualifies for it. Patient has some good cursory strength on my logic assessment of him but physical therapy will help determine if he has any skillable needs. Patient did well with therapy but the left and array of options for him, home versus home care versus SNF Discussed with patient's daughter that his main issue is his inability to care for himself since his traumatic brain injury. Patient has no insight as to the redness of his home and maintaining a schedule. Patient is certainly not capable of caring for himself. I told his daughter that we will see what else case management has to offer him and regards to if he is a candidate for snuff despite not really have any skilled needs or if he will need long-term placements. She did express interest in becoming his guardian. Patient currently does not have a medical power of [place] attorney nor guardian at this time. 2. Bedbug infestation No treatment Other than having cash register servicer go out to his house and treat that 3. DVT prophylaxis with Lovenox 4. Moderate protein malnutrition Prealbumin of 11 Started on supplements Code Visit Inpatient E&M: 82694 Subs Hosp L2
[2018-01-05 14:20] VITALS: BP 128/71; PULSE 67; RESP 18; TEMP 37.3; O2SAT 99
[2018-01-05] MEDS: oxyCODONE 5 MG Tablet PO (20:41)
[2018-01-05 20:42] VITALS: BP 112/64; PULSE 72; RESP 18; TEMP 37.6; O2SAT 99
[2018-01-05] MEDS: traZODone 50 MG Tablet PO (22:03)
[2018-01-05] MEDS: Menthol/Lanolin/Calamine/Znox 113 GM Tube 1 APPLIC TOPICAL (22:03)
[2018-01-06 03:12] VITALS: BP 126/85; PULSE 69; RESP 18; TEMP 36.2; O2SAT 97
[2018-01-06] MEDS: Gemfibrozil 600 MG Tablet PO ×2 (06:55→17:23)
[2018-01-06] MEDS: Menthol/Lanolin/Calamine/Znox 113 GM Tube 1 APPLIC TOPICAL ×3 (06:55→21:06)
[2018-01-06 08:51] VITALS: BP 114/78; PULSE 69; RESP 16; TEMP 37.1; O2SAT 97
[2018-01-06] MEDS: Enoxaparin 40 MG/0.4 ML Syringe SC (08:57)
[2018-01-06] MEDS: Aspirin 81 MG TAB.CHEW PO (08:58)
[2018-01-06] MEDS: oxyCODONE 5 MG Tablet PO ×2 (09:15→13:44)
--- NOTE | 2018-01-06 10:10 | PCM.PN.HOSP ---
Patient Problems: Active and Suspected Problems Failure to thrive (Acute) Subjective: Patient is a 52-year-old gentleman with history of traumatic brain injury brought to the hospital with inability to take care of himself Objective: GENERAL: in no apparent distress. HEENT: Clear conjunctiva, NECK; supple, normal thyroid, CHEST: Clear to auscultation bilaterally, HEART: Regular S1 S2, no audible murmurs ABDOMEN: soft, non-tender, normoactive bowel sounds, RECTAL: deferred EXTREMITIES: No edema, ONLINE TUTOR: Awake; SKIN: No Rash Vitals/I&O's: Vital Signs Temp Pulse Resp BP Pulse Ox 98.7 F 69 16 114/78 97 01/06/18 08:51 01/06/18 08:51 01/06/18 08:51 01/06/18 08:51 01/06/18 08:51 Oxygen Delivery Method Room Air Weight: 85.8 kg Body Mass Index (BMI) 27.1 Intake and Output for Last 24 Hours 01/04/18 01/05/18 01/06/18 23:59 23:59 23:59 Intake Total 3128 / 3128 990 / 990 680 / 680 Output Total 0 / 0 Balance 3128 / 3128 990 / 990 680 / 680 Current Medications Al Hydroxide/Mg Hydroxide (Mylanta Ii) 30 ml PO Q6H PRN PRN PRN Reason: Gastric burning Aspirin (Aspirin, Baby) 81 mg PO DAILY@0800 [facility] Last Admin: 01/06/18 08:58 Dose: 81 mg Calamine/Phenol (Calmoseptine Ointment) 1 applic TOPICAL TID [facility] PRN Reason: Protocol Last Admin: 01/06/18 06:55 Dose: 1 applicatio Enoxaparin Sodium (Lovenox) 40 mg SC DAILY@1000 [facility] Last Admin: 01/06/18 08:57 Dose: 40 mg Gemfibrozil (Lopid) 600 mg PO BIDAC [facility] Last Admin: 01/06/18 06:55 Dose: 600 mg Nutritional Formula (Vinicio - Trinity Flavor) 1 packet PO TIDCM [facility] Last Admin: 01/06/18 08:58 Dose: 1 packet Nutritional Formula (Lactose Free) (Ensure Enlive) 120 ml PO 4X/DAY [facility] Last Admin: 01/06/18 08:59 Dose: 120 ml Ondansetron HCl (Zofran) 4 mg IV Q8H PRN PRN PRN Reason: NAUSEA Oxycodone HCl (Oxyir) 5 mg PO Q4H PRN PRN PRN Reason: MOD-SEVERE PAIN (4-10/10) Last Admin: 01/06/18 09:15 Dose: 5 mg Psyllium Hydrophilic Mucilloid (Metamucil) 1 packet PO DAILY PRN PRN PRN Reason: CONSTIPATION Senna/Docusate Sodium (Senokot-S, Dee-Colace) 2 tablet PO BID PRN PRN PRN Reason: contipation Sodium Chloride () 5 - 30 ml IV UD PRN PRN Reason: SALINE FLUSH Last Admin: 01/04/18 21:41 Dose: 10 ml Trazodone HCl (Desyrel) 50 mg PO QHS PRN PRN PRN Reason: INSOMNIA Last Admin: 01/05/18 22:03 Dose: 50 mg Medical Necessity - Tobacco Use Smoking Status: Former smoker Assessment/Plan All Active Problems Failure to thrive (Acute) Patient is a 52-year-old gentleman with history of traumatic brain injury brought to the hospital with inability to take care of himself 1. Adult failure to thrive: Patient has been admitted to regular nursing floor requested for PT OT as well as social research assistant to assist with disposition 2. Traumatic brain injury; supportive care 3. Bedbug infestation contact precautions initiated 4. Moderate protein calorie malnutrition with prealbumin of 11 dietary supplementation initiated 5. Dyslipidemia patient is on gemfibrozil 6. DVT prophylaxis SC and Advance planning: Conversation initiated by by admitting physician continued patient currently does not have MPOA nor guardian. Saltation placed to social research assistant to assist; Time spent on discussion; 17 minutes Clinical Impression(s) from Imaging Studies Brain CT 01/03/18 22:38 IMPRESSION: Normal unenhanced CT scan of the brain. No acute findings in the brain Electronically Signed: Paddy Camp, at 22:52 EDT Tel , Service support , Active Medications Al Hydroxide/Mg Hydroxide (Mylanta Ii) 30 ml PO Q6H PRN PRN PRN Reason: Gastric burning Aspirin (Aspirin, Baby) 81 mg PO DAILY@0800 [facility] Last Admin: 01/06/18 08:58 Dose: 81 mg Calamine/Phenol (Calmoseptine Ointment) 1 applic TOPICAL TID [facility] PRN Reason: Protocol Last Admin: 01/06/18 06:55 Dose: 1 applicatio Enoxaparin Sodium (Lovenox) 40 mg SC DAILY@1000 [facility] Last Admin: 01/06/18 08:57 Dose: 40 mg Gemfibrozil (Lopid) 600 mg PO BIDAC [facility] Last Admin: 01/06/18 06:55 Dose: 600 mg Nutritional Formula (Vinicio - Trinity Flavor) 1 packet PO TIDCM [facility] Last Admin: 01/06/18 08:58 Dose: 1 packet Nutritional Formula (Lactose Free) (Ensure Enlive) 120 ml PO 4X/DAY [facility] Last Admin: 01/06/18 08:59 Dose: 120 ml Ondansetron HCl (Zofran) 4 mg IV Q8H PRN PRN PRN Reason: NAUSEA Oxycodone HCl (Oxyir) 5 mg PO Q4H PRN PRN PRN Reason: MOD-SEVERE PAIN (4-10/10) Last Admin: 01/06/18 09:15 Dose: 5 mg Psyllium Hydrophilic Mucilloid (Metamucil) 1 packet PO DAILY PRN PRN PRN Reason: CONSTIPATION Senna/Docusate Sodium (Senokot-S, Dee-Colace) 2 tablet PO BID PRN PRN PRN Reason: contipation Sodium Chloride () 5 - 30 ml IV UD PRN PRN Reason: SALINE FLUSH Last Admin: 01/04/18 21:41 Dose: 10 ml Trazodone HCl (Desyrel) 50 mg PO QHS PRN PRN PRN Reason: INSOMNIA Last Admin: 01/05/18 22:03 Dose: 50 mg Code Visit OBSV E&M: 24119 Observ/hosp same date L2 Procedures: 24328 Advncd Care Plan 30 Min
--- NOTE | 2018-01-06 10:32 | CASEMGMT ---
Social Work Note SW received call from Marti with [facility] stating she is unable to accept pt. SW placed a call to Leigha, quality management, to send referral to [facility] for pt. Plan: [facility] pending acceptance and pre-cert Nguyen Zuñiga UI UX WEB DEVELOPER, SALES AND MARKETING INTERN
--- NOTE | 2018-01-06 11:05 | CASEMGMT ---
Call placed to Gillian at [facility] informing her that referral packet would be faxed over. Also let Gillian know that if facility is able to accept patient, to go ahead and start pre-cert. Faxed referral packet ro [phone], confirmation rec'd. Leigha Claudio LPN Clinical Support
[2018-01-06 13:45] VITALS: BP 112/71; PULSE 71; RESP 16; TEMP 37.2; O2SAT 95
--- NOTE | 2018-01-06 15:16 | CASEMGMT ---
Social Work Note SW placed a call to Gillian at [facility]. Gillian states that she is able to accept pt and she will submit for pre-cert. Plan: [facility] pending pre-cert Nguyen Zuñiga MSW, CYTOGENETICS TECHNOLOGIST
--- NOTE | 2018-01-06 16:02 | CASEMGMT ---
Social Work Note ELISABETH spoke with Galina Chakraborty, social work professor, who informed this worker that completing form 34824 (Level of Care form) for pt may be beneficial to submit for insurance approval. ELISABETH completed form and faxed to Gillian at [facility] and informed Gillian to try and submit form with pre-cert in hopes that insurance will approve pt for SNF. Plan: [facility] pending pre-cert Nguyen Zuñiga ELECTRIC PLATER, CHINESE HERBALIST
--- NOTE | 2018-01-06 17:36 | NURSING ---
talked w/ long term care social worker Gabby regarding staff's concerns that comments have been made by patient that he does not want his daughter to be spending his money and concerns that pt's daughter has his debit card as well as comments made by pt's daughter. aware Gabby will talk with her assistant sales manager and will call back. discussed we can assist if pt wants to purse completing a police report. aware d/t age APS inappropriate per social work. above information discussed w/ primary RN
--- NOTE | 2018-01-06 17:49 | CM.ED ---
Social Work Note Call from MS3 material handling technician, Rama Hunt, expressing concern from nursing of pt's daughter allegedly stealing money from his bank account through his debit card. Concerns were originally expressed by the pt to staff. Reviewed concern with SS Dianetic Counselor as APS cannot be contacted since pt is A&Ox4 and not over the age of 60. If a conversation with his daughter does not suffice and he is not providing permission for her to use his funds, pt should be encouraged to file a police report for theft. Place call to Rama Hunt to update. Offer to come speak with pt regarding concern. Per Rama Hunt, the pt's daughter is presently visiting in his room and staff feels it would be a topic better suited for the pt when there are no visitors. Will update Fahad Zuñiga NURSE TRANSITIONAL, for follow-up tomorrow. Leigha Paredes, NURSE TRANSITIONAL, CLIENT ANALYST
--- NOTE | 2018-01-06 17:50 | NURSING ---
talked w/ Gabby social services assistant again regarding concern about pt's daughter and patients debit card. Informed Gabby that Primary RN was informed of her earlier response, that conversation with patient regarding police report will have to be done when pt's daughter not in room but RN doubtful pt wants to persue this. Aware Gabby to leave an email for Nguyen social services assistant to follow up tomorrow.
--- NOTE | 2018-01-06 17:50 | NURSING ---
HAILEY Patterson notified this RN that this morning she heard patient and his daughter discussing his debit card. She said that the patient told his daughter that he didn't want her spending all of his money from his debit card. Daughter replied that he is not going home and that it won't matter and that besides he still has $200-300 still in his account. This RN did not hear any of this discussion- only heard her say, in front of patient and this RN, that she had to go downstairs to meet her boyfriend to get money for her and her niece to eat. Notified smita August RN of information.
[2018-01-06 21:00] VITALS: BP 126/78; PULSE 65; RESP 16; TEMP 37; O2SAT 97
[2018-01-06] MEDS: traZODone 50 MG Tablet PO (22:00)
[2018-01-07 02:37] VITALS: BP 123/79; PULSE 65; RESP 16; TEMP 36.7; O2SAT 96
[2018-01-07] MEDS: Gemfibrozil 600 MG Tablet PO (06:39)
[2018-01-07] MEDS: Menthol/Lanolin/Calamine/Znox 113 GM Tube 1 APPLIC TOPICAL (06:40)
[2018-01-07 08:24] VITALS: BP 106/76; PULSE 59; RESP 18; TEMP 36.7; O2SAT 97
[2018-01-07] MEDS: Enoxaparin 40 MG/0.4 ML Syringe SC (08:28)
[2018-01-07] MEDS: Aspirin 81 MG TAB.CHEW PO (08:28)
--- NOTE | 2018-01-07 08:50 | CASEMGMT ---
Social Work Note SW faxed speech evaluation to Gillian at [facility]. Plan: [facility] pending pre-cert Nguyen Zuñiga BOOM MAN, SPINNING MULE OPERATOR
--- NOTE | 2018-01-07 10:30 | PCM.TXEXTCAR ---
- Diet 01/04/18 00:08 Diet: Regular Diet Food consistency:: Regular Liquid Consistency:: Regular/Thin - Wound(s) Forehead Wound Type: Abrasion - Therapies Physical Therapy: Eval and Treat Occupational Therapy: Eval and Treat - Allergies/Procedures Done in Hospital Allergies/Adverse Reactions: Allergies latex Allergy (Verified 01/03/18 21:27) Rash Penicillins Allergy (Verified 01/03/18 21:27) Swelling - Type of Care/Length of Stay Estimated LOS: Convalescent Care Less Than 30 days Type of Care Needed: Skilled Rehab Potential: Good Prognosis: Good - Additional Orders/Day of Discharge Day of Discharge: 01/07/18 - Dietary and Speech Recommendations Dietitian Recommendations/Changes: Rec d/c Vinicio bid as not indicated - instead, rec continue ONS medpass - also will provide CIB w/ meals for increased nutrition if consumed. Speech Linguistic Eval Summary: Pt. is a 52 YOM admitted to [facility] on 01/04/2018 d/t failure to thrive, unable to care for self s/p traumatic brain injury secondary to fall with small intracranial bleed. Pt.s PMHx is significant for prior traumatic brain injury with resulting impaired cognition, seizure disorder, recurrent falls, acute respiratory failure with hypoxia, essential hypertension, and moderate protein-calorie malnutrition. Pt. admitted to [facility] earlier this year d/t above mentioned traumatic brain injury secondary to fall with small intracranial bleed; intubated for 10 days; recently discharged home from SNF in August of 2017. According to family, the Pt. was able to care for himself for about a month, though slowly deteriorated in regards to nutrition, physical abilities, and performances of activities of daily living. Pt. furthermore was in charge of caring for a family dog, though when the family arrived to check on the Pt., the dog was found (dog was 8 years old w/out health complications; likely d/t neglect), w/ a strong and putrid odor that suggested the dog had passed at least days prior. Pt. was additionally found covered in his own feces and urine; currently on contact precautions d/t bedbugs. 01/03/2018 CT revealed a normal unenhanced CT scan of the brain; no acute findings in the brain. Pt.s daughter present, states intentions to care for the Pt. after a respite period to get home health care in place; though there are inherent complications in that the Pt.s daughter has 3 children of her own. In addition to this, it was brought to this clinicians attention that the Pt.s daughter currently resides at the [facility] and does not have a permanent residence. Pt. known to this clinician from 09/26/2017 outpatient skilled speech-language intervention session, where testing revealed a mild cognitive disorder that was, at the time, believed to be in line with reported baseline cognitive abilities following a previous traumatic brain injury (1997) as reported by the Pt.; upon review this session the Pt.s family insisted that no cognitive impairments were present, and that the Pt.s cognitive abilities have since deteriorated over the following months. Informal assessment was completed this date, as full assessment protocol was limited d/t isolation precaution placement; unable to utilize higher level cognitive assessment materials. Despite this, the Pt. clearly presents w/ exacerbations in attention / concentration, and safety awareness, in addition to rather significant deterioration in working memory / information recall, w/ the Pt. frequently and repetitively asking similar questions over a 45 minute period, furthermore noted to abandon safety protocols discussed not more than 5 minutes prior, w/ the Pt. noted to immediately self-ambulate despite discussing w/ this clinician. Pt. noted to attribute all cognitive issues and inability to care for self on the absence of his waking cane, and does not grasp the severity of his prior living situation despite directly addressing within the session, w/ the Pt. switching topics quite constantly in a tangential manner. Pt. clearly does not demonstrate the adequate insight into his current cognitive functioning, w/ the recent events paired w/ additional family information that was previously unavailable assisting to elucidate the severity of the Pt.s lack of insight. Pt. and Pt.s daughter identifying strategy training as the primariy goal w/ cognitive re-intervention, though cautioned the Pt. and family that strategy training will likely fail within the implementation phase if not provided an optimal environment for success (home stability and consistency). Further concerns persist w/ the anticipated discharge plan post SNF placement. Anticipated discharge to [facility] when medically stable. - Follow Up Care Primary Care Physician: Care Physician,No Primary [Primary Care Provider] -
--- NOTE | 2018-01-07 11:00 | CASEMGMT ---
Social Work Note ELISABETH received call from Gillian at [facility] stating that pre-cert has been obtained and pt is able to discharge today. ELISABETH faxed completed discharge paperwork to Gillian at [facility] including transfer to extended care facility, signed medication list and any scripts. Originals in SNF folder and copy on pt's chart. ELISABETH set up transportation through [facility] via wheelchair van for 12:00pm. Transportation form on SNF folder and copy on pt's chart. PAS/RR completed in HENS. Original in SNF folder and copy on pt's chart. SW in to update pt on discharge and transportation time. Pt's daughter present in room. ELISABETH informed pt that pre-cert has been obtained and he is able to discharge to [facility] today and transportation is set up for 12:00pm. Pt and pt's daughter states understanding. Pt's daughter asked this worker about filling out advanced directives. ELISABETH informed pt's daughter that this worker can provide Advanced Directives to pt and pt and his daughter can fill out advanced directives at [facility]. It should be noted that pt has a traumatic brain injury and cognitive impairment and this worker didn't feel comfortable with filling out advanced directives with pt at this time due to cognitive impairment. It should also be noted that this worker did receive update that pt had mentioned that his daughter has his debit card and is spending pt's money. ELISABETH attempted to talk to pt about this but pt's daughter was present in room and didn't leave room. Pt is under 60 and is alert and orientatedx4 so APS referral is not appropriate. Pt would need to call the police and file a theft complaint. ELISABETH placed a call to Gillian at [facility] and updated her on transportation time and informed her on pt's comments regarding debit card and to have SW at [facility] follow up with pt once daughter leaves [facility]. Gillian states understanding. Gillian asked this worker that since pt has history of bed bugs to not have pt bring any clothing or personal belongings. ELISABETH relayed message to GIOVANI Tapia and to pt's daughter. Pt's daughter states that she has taken pt's belongings home. Pt's daughter asked this worker for note explaining that she has been at [facility] over the weekend as she resides at [facility] currently. Charge Nurse Elodia updated on this and will work on note for pt's daughter. Plan: Pt to discharge to [facility] today under skilled with [facility] transportation at 12:00pm via wheelchair van. SW at [facility] to follow up with pt regarding pt's daughter having debit card and using his money Nguyen Zuñiga AIRPLANE FLIGHT ATTENDANT SUPERVISOR, MANUFACTURING ENGINEER PAINT
--- NOTE | 2018-01-07 11:19 | NURSING ---
called report to Lorna at [facility] at this time. Notified her of cherry picker operator time of 1200.
[2018-01-07 12:00] VITALS: BP 128/69; PULSE 57; RESP 18; TEMP 36.4; O2SAT 98
--- NOTE | 2018-01-07 12:01 | PCM.DC.SUM ---
Discharge Date and Diagnosis - Problem List Patient Problems: Active and Suspected Problems Failure to thrive (Acute) Date of Admission: 01/04/18 Date of Discharge: 01/07/18 - Primary Discharge Diagnosis Active and Suspected Problems Failure to thrive (Acute) - Secondary Discharge Diagnosis Chronic Problems Traumatic brain injury (Chronic) Seizure disorder (Chronic) Recurrent falls (Chronic) Moderate protein-calorie malnutrition (Chronic) Hospital Course and Treatment Summary of Care Provided: Patient is a 52-year-old gentleman with history of traumatic brain injury brought to the hospital with inability to take care of himself 1. Adult failure to thrive: Patient has been admitted to regular nursing floor requested for PT OT as well as social service assistant to assist with disposition patient was transferred to the detention facility once insurance precertification was obtained 2. Traumatic brain injury; supportive care 3. Bedbug infestation contact precautions initiated 4. Moderate protein calorie malnutrition with prealbumin of 11 dietary supplementation initiated 5. Dyslipidemia patient is on gemfibrozil 6. DVT prophylaxis SC and Discharge Diet: No Restrictions Discharge Activity: Return to Normal Activity Home Medications: Medications to take at Discharge Aspirin [Aspirin, Baby] 81 mg PO DAILY@0800 06/02/16 Gemfibrozil [Lopid] 600 mg PO BIDAC 06/02/16 Lisinopril/Hydrochlorothiazide [Zestoretic Tablet] 1 tablet PO DAILY 06/02/16 Ranitidine [Zantac] 300 mg PO QHS 01/04/18 Ensure Enlive 120 ml PO 4X/DAY liquid 01/07/18 Mag Hydrox/Al Hydrox/Simeth [Mylanta II] 30 ml PO Q6H PRN PRN udc 01/07/18 Menthol/Lanolin/Calamine/Znox [Calmoseptine Ointment] 1 applic TOPICAL TID tube 01/07/18 Nutritional Supplement [Vinicio - ORANGE FLAVOR] 1 packet PO TIDCM packet 01/07/18 Potassium Chloride [K-Dur] 20 meq PO DAILY #1 tablet 01/07/18 Psyllium [Metamucil] 1 packet PO DAILY PRN PRN packet 01/07/18 Senna/Docusate Sodium [Senokot-S] 2 tablet PO BID PRN PRN tablet 01/07/18 traZODone [Desyrel] 50 mg PO QHS PRN PRN tablet 01/07/18 Following Prescrptions Were Given to Patient: Potassium Chloride [K-Dur] 20 meq PO DAILY #1 tablet Primary Care Physician: Care Physician,No Primary [Primary Care Provider] - Disposition: Custodial facility Minutes spent on discharge:: 45 Patient Condition:: Stable Medical Necessity - Tobacco Use Smoking Status: Former smoker Meaningful Use Info Meaningful Use Diagnoses (Choose all that apply): None applicable Code Visit OBSV E&M: 19108 Observation care discharge
== END 2018-01-07 12:00 | disposition home or self-care (01) ==
LOC: ED 21:43 → MS3 01-04 00:30
PROVIDERS: Admitting Provider Internal Medicine; Emergency Provider Emergency Medicine; Visit Provider Internal Medicine
DX: R62.7 Adult failure to thrive (principal); Z87.820 Personal history of traumatic brain injury; E44.0 Moderate protein-calorie malnutrition; Z68.27 Body mass index [BMI] 27.0-27.9, adult; G40.909 Epilepsy, unspecified, not intractable, without status epilepticus; E78.5 Hyperlipidemia, unspecified; R29.6 Repeated falls; Z87.891 Personal history of nicotine dependence; R15.9 Full incontinence of feces; R32 Unspecified urinary incontinence; Z79.899 Other long term (current) drug therapy; Z79.82 Long term (current) use of aspirin; I10 Essential (primary) hypertension; E87.6 Hypokalemia; B88.8 Other specified infestations
CPT/HCPCS: 36415; 70450; 80048; 80053; 80320; 81001; 82550; 84134; 85025; 92523; 93005; 96360; 96361; 96372; 97161; 97166; 97802; 99218; 99282; J7030; A4216; G0378; G0480

== ENCOUNTER 2022-01-12 15:00 | Outpatient (RCR) | payer MEDICAID, SELFPAY ==
--- NOTE | 2021-12-15 16:27 | HP.PTEVAL_ITS ---
Patient's Visit Information GABRIELLA HAZEL is a 56 year old M referred to Physical Therapy by DOMENICO SylvesterC with a diagnosis of PHYSICAL DECONDITIONING. Date of Evaluation: 12/15/21 Physical Therapist: Mark Anthony Stanford PT, Cert MDT, OCS - Visit Plan Frequency: 2x /Week Duration: 4 Weeks Plan: PRECAUTION : LATEX ALLERGY. PT INTERVTIONS PROGRESSIVE GAIT TRAINING,BALANCE TRAINING ,STRENGHTHENING BLE ,FUNCTIONAL STRENGTHENING AND ENDURANCE PROGRAM - Subjective This 56 y/o male presents to physical therapy with physical deconditioning. Patient had TBI with head trauma with intercranial bleed~ 4 years ago 2018 . Patient had Rehab AT [facility] and [facility] in [place] unable to care for self then d/c to [facility] . Patient released to home to stay with brother. Patient has been using cane. Recently ,seen DR morales PT. Patient has no recent falls. Denies paresthesia. Lives in apartment on downstairs apartment. Patient has Tub/shower. Patient is able to bath and dress self. Brothers girlfriend does cooking and cleaning. Patient has difficulty sleeping at night. Patient goals to improve gait . PRECAUTION: latex allergy. SOCAIL: Lives family. VOCATION: unemployed - Objective POSTURE: mild forward posture. GAIT: reciprocal pattern decrease step length ,decrease hip /knee flexion slow unsteady kesha increase FELICIANO. BALANCE: fair +. STAIRS: one step at time with rail. MMT: quads/hams 4/5,hip flexion /abduction 4-/5 ,ankle 5/5. FLEXABLITY: hamstrings mild tight - Balance/Special Test Scores Functional Gait Assessment Score: 7 % Disability: 76.6700 CATSIB Score (Max score 120 seconds): 42 Lower Extremity Functional Score: 26 30 Second Chair Rise Test Seconds: 7 - Goals Goal 1:: Patient to be I with HEP Goal Time Frame: 4-6 Weeks Goal 2:: Patient to improve quality of gait with community distance 80% of the time Goal Time Frame: 4-6 Weeks Goal 3:: Patient to improve CATSIB by 5-10 points to improve balance Goal Time Frame: 4-6 Weeks Goal 4:: Patient to improve LFES score by 10 points to improve QOL Goal Time Frame: 4-6 Weeks Goal 5:: Patient to improve functional gait assessment score by 10 points or > to improve gait and balance Goal Time Frame: 4-6 Weeks Goal 6:: Patient to improve 30sec sit-stand test by 5 reps to improve strength and function Goal Time Frame: 4-6 Weeks - Rehabilitation Potential Physical Therapy Diagnosis: This patient has had h/o TBI with intercranial bleed with CVA with current impairments with gait, endurance , strength and balance thus benefit from skilled PT Rehabilitation Potential: Good - Anticipated Interventions Patient/Client Instruction: Educate patient on: Condition, Plan of Care For the Purpose of:: To improve muscle performance and motor function, To improve ability to perform ADL's, To increase tolerance to activity/condition/position, To improve ability of physical actions for home/community/work/leisure, To improve health of tissue, To decrease soft tissue restriction, To increase flexibility/ROM, To improve endurance, To improve balance, To improve safety with gait, To assume or resume ADL's, To reduce risk of recurrence, To improve safety, To improve health and function, To improve tolerance to ADL's Therapeutic Exercise to Include: Strength training, Power training, Endurance training, Balance training, Flexibilty training, Gait and locomotor training, Active ROM Comment: BLE For the Purpose of:: To decrease pain, To improve muscle performance and motor function, To improve ability to perform ADL's, To increase tolerance to activity/condition/position, To increase flexibility/ROM, To improve endurance, To improve balance, To improve safety with gait, To assume or resume ADL's, To improve tolerance to ADL's Thank you for the opportunity to evaluate your patient. For Medicare and Medicare HMO plans, please review the plan of care and approve it. It will need to be FAXED BACK to us at [phone] for Medicare purposes. For Medicare only, by signing this I certify the plan of care. Please let me know if there are questions or concerns regarding this plan of care. Physician Signature: Date:
--- NOTE | 2022-04-18 08:14 | HP.PT.NRP ---
GABRIELLA HAZEL was seen in my office for initial evaluation on 12/15/21. The following Plan of Care was established for this patient: Initial Frequency: 2x /Week Initial Duration: 4 Weeks Patient/Client Instruction: Educate patient on: Condition, Plan of Care For the Purpose of:: To improve muscle performance and motor function, To improve ability to perform ADL's, To increase tolerance to activity/condition/position, To improve ability of physical actions for home/community/work/leisure, To improve health of tissue, To decrease soft tissue restriction, To increase flexibility/ROM, To improve endurance, To improve balance, To improve safety with gait, To assume or resume ADL's, To reduce risk of recurrence, To improve safety, To improve health and function, To improve tolerance to ADL's Therapeutic Exercise to Include: Strength training, Power training, Endurance training, Balance training, Flexibilty training, Gait and locomotor training, Active ROM For the Purpose of:: To decrease pain, To improve muscle performance and motor function, To improve ability to perform ADL's, To increase tolerance to activity/condition/position, To increase flexibility/ROM, To improve endurance, To improve balance, To improve safety with gait, To assume or resume ADL's, To improve tolerance to ADL's This patient was last seen in our office . Pertinent comments regarding their Physical therapy will appear below: Patient seen for PT for physical condition with strengthening ,balance and endurance At this point I will be discontinuing this patient from physical therapy. I would be happy to see this patient again in the future if found appropriate by the physician. Thank you! Mark Anthony Stanford, PT, Cert MDT, OCS Balance/Gait/Functional tests - Balance/Special Test Scores Functional Gait Assessment Score: 7 % Disability: 76.6700 CATSIB Score (Max score 120 seconds): 42 Lower Extremity Functional Score: 41 30 Second Chair Rise Test Seconds: 7
== END 2022-01-12 19:00 | disposition home or self-care (01) ==
LOC: PT 15:00
PROVIDERS: Referring Provider Nurse Practitioner Family; Visit Provider Nurse Practitioner Family
DX: R53.81 Other malaise (principal)
CPT/HCPCS: 97110; 97162

== ENCOUNTER 2024-07-13 09:58 | Emergency (ER) | payer MEDICARE, MEDICAID, SELFPAY ==
[2024-07-13 09:59] VITALS: BP 150/87; PULSE 89; RESP 18; TEMP 37.1; O2SAT 98
--- NOTE | 2024-07-13 10:14 | CT_ITS ---
EXAM: BRAIN/HEAD WITHOUT CONTRAST CLINICAL HISTORY: Weakness COMPARISON: December 2017 TECHNIQUE: Noncontrast images of the head with multiplanar reconstructions. Dose reduction techniques were used including intermediate exposure control (AEC),iterative reconstruction technique, and/or mA and/or KV dose adjustments based on patient's size. FINDINGS: Global volume loss and chronic small vessel ischemic change. No overt stigmata of acute territorial infarct although MRI is more sensitive. No hemorrhage. No mass effect. No midline shift. Paranasal sinuses mastoids are otherwise clear CT/Brain/Head without Contrast IMPRESSION: Senescent changes. No acute findings. If persistent concern, consider MRI. Chronic findings without CT evidence of acute intracranial pathology. Reading Location: [facility]
--- NOTE | 2024-07-13 10:15 | EKG12_ITS ---
Test Reason : Blood Pressure : */* mmHG Vent. Rate : 72 BPM Atrial Rate : 72 BPM P-R Int : 130 ms QRS Dur : 86 ms QT Int : 378 ms P-R-T Axes : 46 -6 34 degrees QTcB Int : 413 ms Normal sinus rhythm Normal ECG Confirmed by Lam Jolley ([id number]), film and video editor OVIDIO HOWARD ([id number]) on 07/14/2024 10:59:40 AM Referred By: BUCK Confirmed By: Lam Jolley
--- NOTE | 2024-07-13 10:15 | RAD_ITS ---
EXAM: XR Chest, 2 Views CLINICAL INDICATION: TECHNIQUE: Frontal and lateral views of the chest. COMPARISON: No relevant prior studies available. FINDINGS: LUNGS AND PLEURAL SPACES: Unremarkable. No consolidation. No pneumothorax. HEART: Unremarkable. No cardiomegaly. MEDIASTINUM: Unremarkable. Normal mediastinal contour. BONES/JOINTS: Unremarkable. No acute fracture. RAD/Chest PA and Lateral IMPRESSION: No acute cardiopulmonary process. Reading Location: [facility]
--- NOTE | 2024-07-13 10:16 | EDS_ITS ---
HPI History of Present Illness Chief Complaint: Neuro S/Sx Informant: patient and family Narrative Narrative: 59-year-old male brought by family because he is weak and had a couple of falls without injury off of the toilet this morning. Patient states he woke up feeling fatigued/tired. He has had cough for 1 or 2 weeks, some diarrhea for the past 3 days without blood, and he denies any other new symptoms. Family who presents does not live with them, says that they spoke with the uncle that he lives with. Patient states he has been dragging his left leg ever since his old stroke, but family states he has been dragging it more for the last couple days maybe. Last night he was acting tired and generally weak. Patient states he walked around the house without a cane but uses a cane when he goes out. They are concerned about a new stroke. Patient denies any focal weakness but admits now that they tell him, that he has been dragging his left leg a little more in the last couple days. PFSH PFS Home Medications ?Medication ?Instructions ?Recorded ?Last Taken ?Type Lisinopril/Hydrochlorothiazide 1 tab PO DAILY 06/02/16 Unknown History [Zestoretic Tablet] aspirin 81 mg chewable tablet 81 mg PO DAILY@0800 05/14 05/29 Unknown History gemfibrozil 600 mg tablet 600 mg PO BIDAC 06/02/16 Unk nown History Ranitidine [Zantac] 300 mg PO QHS 01/04/18 Unkno wn History aluminum-mag hydroxide-simethicone 30 ml PO Q6H PRN OR N Gastric 01/07/18 Unknown Rx 400 mg-400 mg-40 mg/5 mL oral susp burning (Mag-Al Plus Extra Strength) arginine 7 gram-glutam 7 1 packet PO TIDCM 01/07/18 U nknown Rx gram-CaHMB 1.5 xowp-jadye-xy-min oral pwd pkt (Vinicio (with collagen)) food supplemt, lactose-reduced 120 ml PO 4X/DAY Unknown Rx 0.08 gram-1.5 kcal/mL oral liquid (Ensure Enlive) menthol 0.44 %-zinc oxide 20.6 % 1 applic topical TID 01/07/18 Unknown Rx topical ointment (Calmoseptine) potassium chloride 20 mEq 20 meq PO DAILY ##1 01/07/18 Unknown Rx tablet,extended release(part/cryst) (Klor-Con M) psyllium husk (aspartame) 3.4 gram 1 packet PO DAILY P RN PRN 01/07/18 Unknown Rx oral powder packet (Metamucil CONSTIPATION Fiber Singles) sennosides 8.6 mg-docusate sodium 2 tab PO BID PRN PRN contipation 01/07/18 Unknown Rx 50 mg tablet (Stool Softener-Stimulant Laxative) trazodone 50 mg tablet 50 mg PO QHS PRN PRN Insomni a 01/07/18 Unknown Rx amlodipine 2.5 mg tablet 2.5 mg PO DAILY 07/13/24 Unk nown History atorvastatin 20 mg tablet 20 mg PO QHS 07/13/24 Unknow n History divalproex 125 mg capsule,delayed mg PO 07/13/24 Unkno wn History release sprinkle donepezil 10 mg tablet 10 mg PO DAILY 07/13/24 Unkn own History sertraline 25 mg tablet mg 07/13/24 Unknown History sertraline 50 mg tablet mg 07/13/24 Unknown History Allergy/AdvReac Type Severity Reaction Status Date / Time latex Allergy Rash Verified 07/13/24 09:59 Penicillins Allergy Swelling Verified 07/13/24 09:59 Social History Smoking Status: Former smoker ROS ROS ED Constitutional Constitutional ED: Reports malaise and other Details: Shaky this morning ; Denies chills or fever(s) Eyes Eyes: Denies blurry vision, change in vision or diplopia ENT ENT ED: Denies rhinorrhea or sore throat Cardiovascular Cardiovascular: Denies chest pain or palpitations Respiratory/Chest Respiratory/Chest: Reports cough; Denies dyspnea, dyspnea on exertion or sputum Gastrointestinal Gastrointestinal: Reports diarrhea; Denies abdominal pain, nausea or vomiting Genitourinary Genitourinary ED: Denies dysuria or hematuria Musculoskeletal Musculoskeletal: Reports neck pain and other Details: Neck pain chronic unchanged ; Denies back pain Integumentary Denies abscess or rash Neurologic Neurologic: Reports other Details: Pre-existing left lower extremity weakness see HPI, no other acute neurologic symptoms ; Denies abnormal speech, confusion, headache(s) or paresthesias Psychiatric Psychiatric: Denies anxiety or suicidal thoughts EXAM Physical Exam Const Vital Signs: 07/13/24 09:59 07/13/24 12:00 Temperature 98.7 F Temperature Source Oral Pulse Rate 89 89 Respiratory Rate 18 16 Blood Pressure 150/87 H 152/76 H Blood Pressure Mean 108 101 Pulse Ox 98 98 Oxygen Delivery Method Room Air Room Air Positive well nourished and well developed General Appearance ED: well developed and NAD HEENT Reports moist mucous membranes normocephalic and atraumatic Eyes PERRL and EOMs intact bilaterally Neck full ROM and supple Resp normal respiratory effort and clear to auscultation bilaterally Cardio regular rate, regular rhythm and no murmurs Rate: Negative for tachycardic GI non-tender and non-distended Auscultation: normoactive bowel sounds Palpation: soft Back/Spine no CVA tenderness General Back: other FROM Extremity normal to inspection General Extremety ED: Negative for edema, pulses abnormal or tenderness General Extremity: Negative for edema or pulses abnormal Neuro oriented x3, CN's II-XII intact bilaterally and no sensory deficits noted Neuro Narrative: Normal speech. Follows commands. Oriented. NIHSS is 0. He is able to stand up with no assistance, he is a little shaky but able to do it. No dysmetria. Sensorium / Orientation: awake and alert Motor Exam: strength 5/5 throughout Psych mental status grossly normal Skin no rashes or lesions noted and no wounds MDM MDM MDM Narrative Medical decision making narrative: Family suggest that his blood pressure was high when someone checked it at home yesterday. They think it was 170/120. Here he is 150/87. We will continue to watch that, and obtain a workup looking for metabolic disorder, anemia, infection, acute or subacute stroke, but it is also possible that he has a viral URI, which would be a diagnosis of exclusion of all of our testing and COVID/influenza swab is negative. The viral swab is negative. Due to mitral troponin measurements are normal, his EKG is normal in my interpretation, his labs are normal except for mild leukopenia and mild thrombocytopenia. His urine shows no sign of infection. Chest x-ray 2 views shows no evidence of pneumonia mitral rotation radiology was in agreement. Patient's vital signs have remained normal. His blood sugar is normal. At this point, I do not see any abnormalities that require admission to the hospital, he is able to stand, he has had a cough for a week or so, is possible that he has a viral URI that is making him feel poorly. I did a head CT since he does have some unilateral weakness although this is chronic, I reviewed the images and the report which I agree with, there is no acute finding. I do not think he has had an acute ischemic stroke here, especially in context of a negative head CT after having weakness for 3 days or more; I think he has generalized weakness that is making his chronic unilateral weakness more prominent. At this time I reassured him uncomfortable with him going home due to all of this, supportive care advised and close outpatient follow-up and making sure that he uses his cane and/or a walker to help get around to make sure he does not fall, and advised to drink plenty of fluids. They are comfortable with that plan. Lab Data Attestation: I reviewed the patient's lab results. Labs: Laboratory Results - last 24 hr 07/13/24 07/13/24 07/13/24 10:35 11:45 12:29 WBC 3.5 L RBC 4.01 L Hgb 13.4 Hct 39.1 L MCV 97.5 H MCH 33.4 H MCHC 34.3 RDW Std Deviation 48.8 H RDW Coeff of Cash 13.5 Plt Count 129 L MPV 9.7 Immature Gran % (Auto) 0.300 Neut % (Auto) 65.7 Lymph % (Auto) 17.9 L [place]well % (Auto) 14.4 H Eos % (Auto) 1.4 Baso % (Auto) 0.3 Absolute Neuts (auto) 2.3 Absolute Lymphs (auto) 0.62 L Nucleated RBC % 0 Sodium 137 Potassium 3.8 Chloride Direct 104 Carbon Dioxide 22.2 Anion Gap 10 BUN 18 Creatinine 0.79 Estim Creat Clear Calc 118.06 Est GFR (MDRD) Non-Af 101 BUN/Creatinine Ratio 23.3 H Glucose 113 H Calcium 8.3 Troponin T High Sens 15 Troponin T Hi Sens 2 Hr 13 Troponin T Hi Sens 2Hr Delta 2 Urine Color Yellow Urine Clarity Clear Urine pH 6.0 Ur Specific [place] 1.020 Urine Protein 30 H Urine Glucose (UA) Normal Urine Ketones Negative Urine Occult Blood 50 H Urine Nitrite Negative Urine Bilirubin Negative Urine Urobilinogen 1 H Ur Leukocyte Esterase Negative Urine RBC 0-5 SEEN Urine WBC 0-5 SEEN Ur Squamous Epith Cells 0-5 SEEN Urine Bacteria 0 SEEN Urine Mucus 1+ Radiography Diagnostic Testing: Clinical Impression(s) from Imaging Studies Brain CT 07/13/24 10:14 IMPRESSION: Senescent changes. No acute findings. If persistent concern, consider MRI. Chronic findings without CT evidence of acute intracranial pathology. Reading Location: [id number] Chest X-Ray 07/13/24 10:15 IMPRESSION: No acute cardiopulmonary process. Reading [facility] Rhythm Strip Rhythm Strip: Sinus Rhythm Rate: 75 Ectopy: None EKG Initial EKG: Attestation: I personally reviewed and interpreted this EKG as follows: Interpretation: Sinus Rhythm and No Acute Injury Pattern Comments: Nml axis & intervals; nml EKG Discharge Plan Triage Chief Complaint: Neuro S/Sx ED Provider: Ronal Fair Dx/Rx/DC Orders Clinical Impression: Weakness generalized, Viral URI with cough Instructions: ED URI, Viral, No Abx (Adult), ED Weakness (Uncertain Cause) Prescriptions: No Action gemfibrozil 600 MG tablet 600 mg PO BIDAC aspirin 81 MG tablet,chewable 81 mg PO DAILY@0800 Lisinopril/Hydrochlorothiazide [Zestoretic 20/25 Tablet] 1 TABLET tablet 1 tab PO DAILY Ranitidine [Zantac] 300 MG tablet 300 mg PO QHS trazodone 50 MG tablet 50 mg PO QHS PRN PRN (Reason: Insomnia) 0RF sennosides-docusate sodium [Stool Softener-Stimulant Laxat] 1 TABLET tablet 2 tab PO BID PRN PRN (Reason: contipation) 0RF alum-mag hydroxide-simeth [Mag-Al Plus Extra Strength] 30 ML suspension 30 ml PO Q6H PRN PRN (Reason: Gastric burning) 0RF psyllium husk (aspartame) [Metamucil Fiber Singles] 1 PACKET powder in packet 1 packet PO DAILY PRN PRN (Reason: CONSTIPATION) 0RF menthol-zinc oxide [Calmoseptine] 1 APPLIC ointment 1 applic topical TID 0RF Protocol: *Topical Application Instructions APPLICATION INSTRUCTIONS: APPLY TO EXCORIATED AREAS TO COCCYX/GLUTEAL FOLDS food supplemt, lactose-reduced [Ensure Enlive] 120 ML liquid 120 ml PO 4X/DAY 0RF [id number] [Vinicio (with collagen)] 1 PACKET powder in packet 1 packet PO TIDCM 0RF potassium chloride [Klor-Con M20] 20 MEQ tablet 20 meq PO DAILY Qty: 1 0RF atorvastatin 20 mg tablet 20 mg PO QHS donepezil 10 mg tablet 10 mg PO DAILY amlodipine 2.5 mg tablet 2.5 mg PO DAILY sertraline 25 mg tablet Patient Comments: TAKE 1 tab by mouth daily, Take with 50mg daily to equal 75mg daily sertraline 50 mg tablet Patient Comments: TAKE 1 tab by mouth daily, Take with 25mg daily to equal 75mg daily divalproex 125 mg capsule, delayed rel sprinkle PO Patient Comments: TAKE 11 Capsules by mouth daily, 6 every morning 5 every evening Primary Care Provider: Lindsay Rodriguez NP Referrals: Lindsay Rodriguez NP, [facility] [Primary Care Provider] - 3-5 Days Print Language: Cook Islander Disposition Disposition: Home, Self Care
[2024-07-13 10:42] LABS: Absolute Lymphocyte Count 0.62 X10^3/uL (0.83-4.51); Absolute Neutrophil Count 2.3 X10^3/uL (2.0-7.7); Basophil# 0.01 X10^3/uL; Basophil% 0.3 % (0-1); Eosinophil# 0.05 X10^3/uL; Eosinophils% 1.4 % (0-5); Hematocrit 39.1 % (40-54); Hemoglobin 13.4 g/dL (13.0-16.5); Lymphocyte # 0.62 X10^3/ul (0.83-4.51); Lymphocyte % 17.9 % (19-41); Mean Corp Hgb Conc 34.3 g/dL (32-36); Mean Corpuscular Hgb 33.4 pg (27.0-32.0); Mean Corpuscular Volume 97.5 fL (80-94); Mean Platelet Vol. 9.7 fl (6.2-12.0); Monocyte% 14.4 % (0-10); NRBC Flagged by Analyzer 0 % (0-5); Neutrophil # 2.28 X10^3/uL (2.7-7.7); Neutrophil % 65.7 % (47-70); Platelet Count 129 K/mm3 (150-450); RBC Distribution Width CV 13.5 % (11.6-14.6); RBC Distribution Width SD 48.8 fl (35.1-43.9); Red Blood Count 4.01 M/mm3 (4.6-6.2); White Blood Count 3.5 K/mm3 (4.4-11.0)
[2024-07-13 11:16] VITALS: BMI 32.5
[2024-07-13 11:23] LABS: Anion Gap 10 (5-15); BUN 18 mg/dL (4-19); BUN/Creat Ratio 23.3 RATIO (10-20); Calcium 8.3 mg/dL (7.6-11.0); Carbon Dioxide 22.2 mmol/L (22.0-29.0); Chloride 104 mmol/L (96-108); Creatinine, Serum 0.79 mg/dL (0.70-1.20); EST Glomerular Filtration Rate 101 (>60); Estimated Creatinine Clearance 118.06 ml/min (50-250); Glucose 113 mg/dL (70-99); Potassium 3.8 mmol/L (3.3-5.1); Sodium Level 137 mmol/L (133-145)
[2024-07-13 11:51] LABS: Bacteria 0 SEEN /hpf (None Seen)
[2024-07-13 11:57] LABS: Color, Urine Yellow (Yellow); Glucose, Dipstick Normal (Normal); Ketone-Dipstick Negative (Negative); Leukocyte Esterase-Dipstick Negative /ul (Negative); Nitrite-Dipstick Negative (Negative); Occult Blood-Urine 50 /ul (Negative); Protein-Dipstick 30 mg/dl (Negative); Urine Bilirubin Dipstick Negative (Negative); Urine Clarity Clear (Clear); Urine Urobilinogen 1 mg/dl (Normal)
[2024-07-13 12:00] VITALS: BP 152/76; PULSE 89; RESP 16; O2SAT 98
[2024-07-13 12:11] LABS: Troponin T High Sensitivity 15 ng/L (<=22)
[2024-07-13 12:19] LABS: Mucous, Urine 1+ /hpf (<or=2+); Red Blood Cells-Urine 0-5 SEEN /hpf (0-5); Squamous Epithelial Cells - UA 0-5 SEEN /hpf (0-5); White Blood Cells 0-5 SEEN /hpf (0-5)
[2024-07-13 13:07] LABS: TROPONIN VARIANCE 2 HR 2; Troponin T High Sens 2 HR 13 ng/L (<=22)
[2024-07-13 13:50] VITALS: BP 138/78; PULSE 64; RESP 18; TEMP 36.6; O2SAT 98
== END 2024-07-13 13:52 | disposition home or self-care (01) ==
PROVIDERS: Emergency Provider Emergency Medicine; PCP Nurse Practitioner Family; Visit Provider Emergency Medicine
DX: R53.1 Weakness (principal); J06.9 Acute upper respiratory infection, unspecified; Z87.891 Personal history of nicotine dependence; R05.9 Cough, unspecified
CPT/HCPCS: 70450; 71046; 80048; 81001; 84484; 85025; 87631; 93005; 99284; A4216

== ENCOUNTER 2024-07-20 19:37 | Inpatient (IN) | payer MEDICARE, MEDICAID, SELFPAY ==
[2024-07-20] VITALS (12 sets, daily range): BP systolic 128–156; BP diastolic 77–99; PULSE 97–118; RESP 22–32; TEMP 37.1–38.5; O2SAT 84–96; BMI 31.7; BMI 31.5
--- NOTE | 2024-07-20 19:43 | EKG12_ITS ---
Test Reason : DYSRHYTHMIA Blood Pressure : */* mmHG Vent. Rate : 107 BPM Atrial Rate : 107 BPM P-R Int : 120 ms QRS Dur : 92 ms QT Int : 300 ms P-R-T Axes : 44 21 263 degrees QTcB Int : 400 ms Sinus tachycardia Possible Left atrial enlargement ST & T wave abnormality, consider inferior ischemia ST & T wave abnormality, consider anterolateral ischemia Abnormal ECG Confirmed by Lam Jolley ([id number]), commercial production editor OVIDIO HOWARD ([id number]) on 07/21/2024 10:58:48 AM Referred By: HENNY Confirmed By: Lam Jolley
--- NOTE | 2024-07-20 19:44 | EDS_ITS ---
HPI <MARGE Hong - Last Filed: 07/20/24 21:45> History of Present Illness Chief Complaint: General Illness Narrative Narrative: 59-year-old male with PMH of HTN,CVA, seizures has had congestion and cough for 1 week. Last night after dinner he started to have vomiting and diarrhea. He vomited again this morning and has only drank a few sips of Gatorade throughout the day. He lives in a house with his brother and his brother's girlfriend and their niece and today he was too weak to get up even with multiple people assisting him. No falls. Family gave Tylenol about an hour ago and called EMS for transport. He vapes. He does not wear home oxygen. His daughter is here and has paperwork saying he is DNR comfort care. This is because after his stroke he was intubated for 2 weeks and he said he never wanted this to happen again. He was in a snf until 3 years ago. PFS <MARGE Hong - Last Filed: 07/20/24 21:45> [facility] Medical History (Updated 07/21/24 @ 00:02 by Background Daanuj) HTN (hypertension) Left-sided weakness CVA (cerebral vascular accident) Home Medications ?Medication ?Instructions ?Recorded ?Last Taken ?Type Lisinopril/Hydrochlorothiazide 1 tab PO DAILY 06/02/16 Unknown History [Zestoretic Tablet] aspirin 81 mg chewable tablet 81 mg PO DAILY@0800 05/14 05/29 Unknown History gemfibrozil 600 mg tablet 600 mg PO BIDAC 06/02/16 Unk nown History Ranitidine [Zantac] 300 mg PO QHS 01/04/18 Unkno wn History aluminum-mag hydroxide-simethicone 30 ml PO Q6H PRN MD N Gastric 01/07/18 Unknown Rx 400 mg-400 mg-40 mg/5 mL oral susp burning (Mag-Al Plus Extra Strength) arginine 7 gram-glutam 7 1 packet PO TIDCM 01/07/18 U nknown Rx gram-CaHMB 1.5 sqtu-lhkin-pj-min oral pwd pkt (Vinicio (with collagen)) food supplemt, lactose-reduced 120 ml PO 4X/DAY Unknown Rx 0.08 gram-1.5 kcal/mL oral liquid (Ensure Enlive) menthol 0.44 %-zinc oxide 20.6 % 1 applic topical TID 01/07/18 Unknown Rx topical ointment (Calmoseptine) potassium chloride 20 mEq 20 meq PO DAILY ##1 01/07/18 Unknown Rx tablet,extended release(part/cryst) (Klor-Con M) psyllium husk (aspartame) 3.4 gram 1 packet PO DAILY P RN PRN 01/07/18 Unknown Rx oral powder packet (Metamucil CONSTIPATION Fiber Singles) sennosides 8.6 mg-docusate sodium 2 tab PO BID PRN PRN contipation 01/07/18 Unknown Rx 50 mg tablet (Stool Softener-Stimulant Laxative) trazodone 50 mg tablet 50 mg PO QHS PRN PRN Insomni a 01/07/18 Unknown Rx amlodipine 2.5 mg tablet 2.5 mg PO DAILY 07/13/24 Unk nown History atorvastatin 20 mg tablet 20 mg PO QHS 07/13/24 Unknow n History divalproex 125 mg capsule,delayed mg PO 07/13/24 Unkno wn History release sprinkle donepezil 10 mg tablet 10 mg PO DAILY 07/13/24 Unkn own History sertraline 25 mg tablet 75 mg PO DAILY 07/13/24 Unkn own History sertraline 50 mg tablet mg 07/13/24 Unknown History Allergy/AdvReac Type Severity Reaction Status Date / Time latex Allergy Rash Verified 07/20/24 19:38 Penicillins Allergy Swelling Verified 07/20/24 19:38 Family History (Updated 07/20/24 @ 22:50 by MARGE Anand) Mother CVA (cerebral vascular accident) Father Heart disease Surgical History (Updated 07/20/24 @ 22:50 by MARGE Anand) History of appendectomy Social History (Updated 07/20/24 @ 22:51 by MARGE Anand) household members: family housing: house Smoking Status: Current every day smoker tobacco type: e-cigarettes substance use type: marijuana ROS <MARGE Hong - Last Filed: 07/20/24 21:45> ROS ED ROS Narrative Constitutional: Positive for fever, chills, malaise. CVS: Negative for chest pain. Respiratory: Positive for shortness of breath, cough. GI: Positive for vomiting, diarrhea. No abdominal pain. EXAM <MARGE Hong - Last Filed: 07/20/24 21:45> Physical Exam Narrative Exam Narrative: CONST: Patient appears ill. Wearing nonrebreather at 10 L. EYES: Normal inspection. NECK: Normal inspection. RESP: Diminished lung sounds. CVS: Tachycardic with regular rhythm, no murmur, no gallop. ABD: Soft and nontender, no guarding or rebound, nondistended. SKIN: Color normal, no rash, warm, dry, intact. EXTREMITIES: Normal appearance, no pedal edema. NEURO: Alert and answering questions appropriately. Hard of hearing. PSYCH: Normal affect. Const Vital Signs: 07/20/24 19:37 07/20/24 19:37 07/20/24 19:37 Temperature 101.3 F H
--- NOTE | 2024-07-20 19:44 | EX.ED.DYSGE1 ---
HPI <MARGE Hong - Last Filed: 07/20/24 21:45> History of Present Illness Chief Complaint: General Illness Narrative Narrative: 59-year-old male with PMH of HTN,CVA, seizures has had congestion and cough for 1 week. Last night after dinner he started to have vomiting and diarrhea. He vomited again this morning and has only drank a few sips of Gatorade throughout the day. He lives in a house with his brother and his brother's girlfriend and their niece and today he was too weak to get up even with multiple people assisting him. No falls. Family gave Tylenol about an hour ago and called EMS for transport. He vapes. He does not wear home oxygen. His daughter is here and has paperwork saying he is DNR comfort care. This is because after his stroke he was intubated for 2 weeks and he said he never wanted this to happen again. He was in a fdc until 3 years ago. PFSH <MARGE Hong - Last Filed: 07/20/24 21:45> [facility] Medical History (Updated 07/21/24 @ 00:02 by Background Sunni) HTN (hypertension) Left-sided weakness CVA (cerebral vascular accident) Home Medications ?Medication ?Instructions ?Recorded ?Last Taken ?Type Lisinopril/Hydrochlorothiazide 1 tab PO DAILY 06/02/16 Unknown History [Zestoretic Tablet] aspirin 81 mg chewable tablet 81 mg PO DAILY@0800 06/02/16 Unknown History gemfibrozil 600 mg tablet 600 mg PO BIDAC 06/02/16 Unknown History Ranitidine [Zantac] 300 mg PO QHS 01/04/18 Unknown History aluminum-mag hydroxide-simethicone 30 ml PO Q6H PRN PRN Gastric 01/07/18 Unknown Rx 400 mg-400 mg-40 mg/5 mL oral susp burning (Mag-Al Plus Extra Strength) arginine 7 gram-glutam 7 1 packet PO TIDCM 01/07/18 Unknown Rx gram-CaHMB 1.5 zqdc-plsfp-zx-min oral pwd pkt (Vinicio (with collagen)) food supplemt, lactose-reduced 120 ml PO 4X/DAY 01/07/18 Unknown Rx 0.08 gram-1.5 kcal/mL oral liquid (Ensure Enlive) menthol 0.44 %-zinc oxide 20.6 % 1 applic topical TID 01/07/18 Unknown Rx topical ointment (Calmoseptine) potassium chloride 20 mEq 20 meq PO DAILY ##1 01/07/18 Unknown Rx tablet,extended release(part/cryst) (Klor-Con M) psyllium husk (aspartame) 3.4 gram 1 packet PO DAILY PRN PRN 01/07/18 Unknown Rx oral powder packet (Metamucil CONSTIPATION Fiber Singles) sennosides 8.6 mg-docusate sodium 2 tab PO BID PRN PRN contipation 01/07/18 Unknown Rx 50 mg tablet (Stool Softener-Stimulant Laxative) trazodone 50 mg tablet 50 mg PO QHS PRN PRN Insomnia 01/07/18 Unknown Rx amlodipine 2.5 mg tablet 2.5 mg PO DAILY 07/13/24 Unknown History atorvastatin 20 mg tablet 20 mg PO QHS 07/13/24 Unknown History divalproex 125 mg capsule,delayed mg PO 07/13/24 Unknown History release sprinkle donepezil 10 mg tablet 10 mg PO DAILY 07/13/24 Unknown History sertraline 25 mg tablet 75 mg PO DAILY 07/13/24 Unknown History sertraline 50 mg tablet mg 07/13/24 Unknown History Allergy/AdvReac Type Severity Reaction Status Date / Time latex Allergy Rash Verified 07/20/24 19:38 Penicillins Allergy Swelling Verified 07/20/24 19:38 Family History (Updated 07/20/24 @ 22:50 by MARGE Anand) Mother CVA (cerebral vascular accident) Father Heart disease Surgical History (Updated 07/20/24 @ 22:50 by MARGE Anand) History of appendectomy Social History (Updated 07/20/24 @ 22:51 by MARGE Anand) household members: family housing: house Smoking Status: Current every day smoker tobacco type: e-cigarettes substance use type: marijuana ROS <MARGE Hong - Last Filed: 07/20/24 21:45> ROS ED ROS Narrative Constitutional: Positive for fever, chills, malaise. CVS: Negative for chest pain. Respiratory: Positive for shortness of breath, cough. GI: Positive for vomiting, diarrhea. No abdominal pain. EXAM <MARGE Hong - Last Filed: 07/20/24 21:45> Physical Exam Narrative Exam Narrative: CONST: Patient appears ill. Wearing nonrebreather at 10 L. EYES: Normal inspection. NECK: Normal inspection. RESP: Diminished lung sounds. CVS: Tachycardic with regular rhythm, no murmur, no gallop. ABD: Soft and nontender, no guarding or rebound, nondistended. SKIN: Color normal, no rash, warm, dry, intact. EXTREMITIES: Normal appearance, no pedal edema. NEURO: Alert and answering questions appropriately. Hard of hearing. PSYCH: Normal affect. Const Vital Signs: 07/20/24 19:37 07/20/24 19:37 07/20/24 19:37 Temperature 101.3 F H Temperature Source Oral Pulse Rate 112 H Respiratory Rate 24 H Respiratory Effort Short of Breath Respiratory Pattern Tachypnea Blood Pressure 129/89 H Blood Pressure Mean 102 Pulse Ox 84 88 Oxygen Delivery Method Room Air Nasal Cannula Oxygen Flow Rate (L/min) 6 07/20/24 19:41 07/20/24 19:49 07/20/24 20:29 Temperature 101.3 F H Temperature Source Oral Pulse Rate 112 H Respiratory Rate 24 H Respiratory Effort Respiratory Pattern Blood Pressure 129/89 H Blood Pressure Mean 102 Pulse Ox 88 92 96 Oxygen Delivery Method Nasal Cannula Non-Rebreather High Flow Oxygen Flow Rate (L/min) 6 10 10 07/20/24 20:41 07/20/24 21:00 07/20/24 21:36 Temperature 99.4 F H 99.4 F H 99 F Temperature Source Oral Oral Pulse Rate 102 H 100 98 Respiratory Rate 25 H 25 H 24 H Respiratory Effort Respiratory Pattern Blood Pressure 146/84 H 156/85 H 146/91 H Blood Pressure Mean 104 108 109 Pulse Ox 96 96 95 Oxygen Delivery Method High Flow High Flow Oxygen Flow Rate (L/min) 10 <Jean Palu Olson MD - Last Filed: 07/21/24 00:08> Physical Exam Const Vital Signs: 07/20/24 19:37 07/20/24 19:37 07/20/24 19:37 Temperature 101.3 F H Temperature Source Oral Pulse Rate 112 H Respiratory Rate 24 H Respiratory Effort Short of Breath Respiratory Pattern Tachypnea Blood Pressure 129/89 H Blood Pressure Mean 102 Pulse Ox 84 88 Oxygen Delivery Method Room Air Nasal Cannula Oxygen Flow Rate (L/min) 6 07/20/24 19:41 07/20/24 19:49 07/20/24 20:29 Temperature 101.3 F H Temperature Source Oral Pulse Rate 112 H Respiratory Rate 24 H Respiratory Effort Respiratory Pattern Blood Pressure 129/89 H Blood Pressure Mean 102 Pulse Ox 88 92 96 Oxygen Delivery Method Nasal Cannula Non-Rebreather High Flow Oxygen Flow Rate (L/min) 6 10 10 07/20/24 20:41 07/20/24 21:00 07/20/24 21:36 Temperature 99.4 F H 99.4 F H 99 F Temperature Source Oral Oral Pulse Rate 102 H 100 98 Respiratory Rate 25 H 25 H 24 H Respiratory Effort Respiratory Pattern Blood Pressure 146/84 H 156/85 H 146/91 H Blood Pressure Mean 104 108 109 Pulse Ox 96 96 95 Oxygen Delivery Method High Flow High Flow Oxygen Flow Rate (L/min) 10 [facility] <MARGE Hong - Last Filed: 07/20/24 21:45> [facility] Narrative Medical decision making narrative: History gathered from: Patient and daughter Differential includes but not limited to pneumonia, viral etiology, sepsis, UTI 59-year-old male with history of HTN, CVA, seizures has had 1 week of upper respiratory symptoms and yesterday developed N/V/D and generalized weakness. He was to weak to get up at home today. He has some debility at baseline and uses a walker from prior stroke. He appears ill. BP 129/89, HR 112, RR 24, 84% on 6 L nasal cannula so he was placed on a nonrebreather at 10 L and is 96%. He has a fever of 101.3F and was given Tylenol 1 hour prior to arrival. This is trending down. Sepsis workup was initiated. Patient and family confirm he is DNR CC and have up-to-date paperwork with them. After this was found out social work was consulted who spoke to the family patient but he does not want to be hospice. Daughter states he does need full-time care and social work states he will need admitted for placement as well as obviously treatment of his medical condition. WBC is 4.6, hemoglobin 15.2, platelets 182. He is mildly dehydrated with BUN of 24, creatinine 0.94. Sodium and potassium are normal. Glucose 181, CO2 20.8, anion gap 16. Lactic is 2.6. He was given IV fluids at 30 cc/kg (3 L). Urinalysis negative for infection. Chest x-ray shows developing pneumonia left perihilar and lower lung regions. His viral swab was negative for COVID/flu/RSV so after blood cultures he was given IV Levaquin due to severe penicillin allergy. Of note his EKG is sinus tachycardia and there are slight ST depressions in the inferior and anterolateral leads. I did not order cardiac enzymes as he is DNR CC and did not want intervention anyway. It is also likely secondary to hypoxia and demand ischemia. He was weaned down to 6 L of O2 nasal cannula is maintaining saturations above 94%. I discussed the case with the hospitalist for admission. He requested a CT with IV of the chest/abdomen/pelvis as there is no clear source of his diarrhea. This was ordered and patient was admitted to the PCU. Lab Data Attestation: I reviewed the patient's lab results. Labs: Laboratory Results - last 24 hr 07/20/24 07/20/24 07/20/24 19:43 20:00 20:30 WBC 4.6 RBC 4.50 L Hgb 15.2 Hct 43.0 MCV 95.6 H MCH 33.8 H MCHC 35.3 RDW Std Deviation 49.6 H RDW Coeff of Cash 13.9 Plt Count 182 MPV 9.6 Immature Gran % (Auto) 0.200 Neut % (Auto) 86.3 H Lymph % (Auto) 6.0 L Ida % (Auto) 7.3 Eos % (Auto) 0.0 Baso % (Auto) 0.2 Absolute Neuts (auto) 4.0 Absolute Lymphs (auto) 0.28 L Nucleated RBC % 0 PT 14.6 INR 1.1 APTT 25.1 Sodium 140 Potassium 3.5 Chloride 104 Carbon Dioxide 20.8 L Anion Gap 16 H BUN 24 H Creatinine 0.94 Estim Creat Clear Calc 98.00 Est GFR (MDRD) Non-Af 92 BUN/Creatinine Ratio 25.1 H Glucose 181 H Lactic Acid 2.6 H* Calcium 9.2 Total Bilirubin 0.59 AST 15 ALT 7 Alkaline Phosphatase 57 Total Protein 6.9 Albumin 4.0 Globulin 2.9 Albumin/Globulin Ratio 1.4 Urine Color Yellow Urine Clarity Sl. Cloudy Urine pH 5.0 Ur Specific [place] 1.025 Urine Protein 100 H Urine Glucose (UA) Normal Urine Ketones 15 H Urine Occult Blood 150 H Urine Nitrite Negative Urine Bilirubin 1 H Urine Urobilinogen 1 H Ur Leukocyte Esterase Negative Urine RBC 0-5 SEEN Urine WBC 10-25 SEEN Ur Squamous Epith Cells 0-5 SEEN Urine Bacteria RARE Hyaline Casts 0-5 SEEN Urine Mucus 4+ Radiography Diagnostic Testing: Clinical Impression(s) from Imaging Studies Chest X-Ray 07/20/24 19:52 IMPRESSION: 1. Development of patchy perihilar and left lower lung consolidations, compatible with pneumonitis/pneumonia. 2. Small left pleural effusion. Reading Location: [facility] Chest/Abdomen/Pelvis CT 07/20/24 21:55 IMPRESSION: Airspace opacities in the bilateral lower lobes, concerning for pneumonia. No acute findings in the abdomen or pelvis. Cholelithiasis. One or more dose reduction techniques were used (e.g., Automated exposure control, adjustment of the mA and/or kV according to patient size, use of iterative reconstruction technique). Reading Location: [facility] ED attending interpretation 1 view chest x-ray shows left lower lobe pneumonia. EKG Initial EKG: Attestation: I personally reviewed and interpreted this EKG as follows: Interpretation: Sinus Rhythm Comments: Sinus tachycardia at [address] depressions in inferior and anterior lateral leads <Jean Paul Olson MD - Last Filed: 07/21/24 00:08> [facility] History & Record Review Discussion w/independent historian: Patient and Family Lab Data Labs: Laboratory Results - last 24 hr 07/20/24 07/20/24 07/20/24 19:43 20:00 20:30 WBC 4.6 RBC 4.50 L Hgb 15.2 Hct 43.0 MCV 95.6 H MCH 33.8 H MCHC 35.3 RDW Std Deviation 49.6 H RDW Coeff of Acsh 13.9 Plt Count 182 MPV 9.6 Immature Gran % (Auto) 0.200 Neut % (Auto) 86.3 H Lymph % (Auto) 6.0 L Ida % (Auto) 7.3 Eos % (Auto) 0.0 Baso % (Auto) 0.2 Absolute Neuts (auto) 4.0 Absolute Lymphs (auto) 0.28 L Nucleated RBC % 0 PT 14.6 INR 1.1 APTT 25.1 Sodium 140 Potassium 3.5 Chloride 104 Carbon Dioxide 20.8 L Anion Gap 16 H BUN 24 H Creatinine 0.94 Estim Creat Clear Calc 98.00 Est GFR (MDRD) Non-Af 92 BUN/Creatinine Ratio 25.1 H Glucose 181 H Lactic Acid 2.6 H* Calcium 9.2 Total Bilirubin 0.59 AST 15 ALT 7 Alkaline Phosphatase 57 Total Protein 6.9 Albumin 4.0 Globulin 2.9 Albumin/Globulin Ratio 1.4 Urine Color Yellow Urine Clarity Sl. Cloudy Urine pH 5.0 Ur Specific [place] 1.025 Urine Protein 100 H Urine Glucose (UA) Normal Urine Ketones 15 H Urine Occult Blood 150 H Urine Nitrite Negative Urine Bilirubin 1 H Urine Urobilinogen 1 H Ur Leukocyte Esterase Negative Urine RBC 0-5 SEEN Urine WBC 10-25 SEEN Ur Squamous Epith Cells 0-5 SEEN Urine Bacteria RARE Hyaline Casts 0-5 SEEN Urine Mucus 4+ Radiography Diagnostic Testing: Clinical Impression(s) from Imaging Studies Chest X-Ray 07/20/24 19:52 IMPRESSION: 1. Development of patchy perihilar and left lower lung consolidations, compatible with pneumonitis/pneumonia. 2. Small left pleural effusion. Reading Location: [facility] Chest/Abdomen/Pelvis CT 07/20/24 21:55 IMPRESSION: Airspace opacities in the bilateral lower lobes, concerning for pneumonia. No acute findings in the abdomen or pelvis. Cholelithiasis. One or more dose reduction techniques were used (e.g., Automated exposure control, adjustment of the mA and/or kV according to patient size, use of iterative reconstruction technique). Reading Location: [facility] Management Discussion w/another healthcare provider: Hospitalist Treatment and Re-Evaluation :: Dr. Olson: I have personally performed a face to face assessment of the patient and have reviewed the SHAILESH Note. I performed a substantive portion of the visit including all aspects of the following. My saldaña findings include: History is not feeling well for the last few days. Upon arrival, EMS states patient hypoxic at 84% on room air, does not wear oxygen. Exam is positive fever. Cardiovascular examination reveals positive tachycardia. Positive rhonchorous lungs with decreased breath sounds bilateral bases. Abdomen soft and nontender without guarding or rebound. Medical Decision Making: Sepsis workup, however patient is DNR comfort care only. He does not want intubation or mechanical ventilation. According to his daughter/family he signed this about a year to a year and a half ago. History of stroke and intubation and does not want that repeated. Patient discussed with social work. 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 Start antibiotics. Admit. Other additions or changes: [None] Discharge Plan Dx/Rx/DC Orders Clinical Impression: Community acquired pneumonia, Acute hypoxic respiratory failure, Sepsis, ST segment changes on electrocardiogram, Dehydration Disposition Disposition: Acute Care Hospital [facility] Discharge Date/Time: 07/20/24 22:29
--- NOTE | 2024-07-20 19:52 | RAD_ITS ---
PROCEDURE: CHEST 1 VIEW (PORTABLE) REASON FOR EXAM: 59-year-old male, cough, hypoxia, congestion and weakness x1 week TECHNIQUE: Frontal view of the chest. COMPARISON: Chest radiograph 07/13/2024. FINDINGS: The heart size is normal. Interval development of patchy consolidation within the perihilar and left lower lung regions. Small left pleural effusion. No pneumothorax. Degenerative changes are identified within the thoracic spine. RAD/Chest 1 View (Portable) IMPRESSION: 1. Development of patchy perihilar and left lower lung consolidations, compatib le with pneumonitis/pneumonia. 2. Small left pleural effusion. Reading Location: [id number]
[2024-07-20] MEDS: 0.9% Normal Saline (1000mL) 1,000 ML 999 ML IV ×3 (20:03→21:35)
[2024-07-20 20:20] LABS: Absolute Lymphocyte Count 0.28 X10^3/uL (0.83-4.51); Basophil# 0.01 X10^3/uL; Basophil% 0.2 % (0-1); Hemoglobin 15.2 g/dL (13.0-16.5); Lymphocyte # 0.28 X10^3/ul (0.83-4.51); Mean Corp Hgb Conc 35.3 g/dL (32-36); Mean Corpuscular Hgb 33.8 pg (27.0-32.0); Mean Corpuscular Volume 95.6 fL (80-94); Mean Platelet Vol. 9.6 fl (6.2-12.0); Monocyte# 0.34 X10^3/uL; Monocyte% 7.3 % (0-10); NRBC Flagged by Analyzer 0 % (0-5); Neutrophil % 86.3 % (47-70); POSITIVE DIFFERENTIAL YES; Platelet Count 182 K/mm3 (150-450); RBC Distribution Width CV 13.9 % (11.6-14.6); RBC Distribution Width SD 49.6 fl (35.1-43.9); White Blood Count 4.6 K/mm3 (4.4-11.0)
[2024-07-20 20:41] LABS: ALB/GLOB Ratio 1.4 RATIO (0.9-2.4); AST(SGOT) 15 U/L (<=37); Alanine Aminotransfer ALT/SGPT 7 U/L (<=46); Alkaline Phosphatase 57 U/L (40-129); Anion Gap 16 (5-15); BUN 24 mg/dL (4-19); BUN/Creat Ratio 25.1 RATIO (10-20); Calcium,Total 9.2 mg/dL (7.6-11.0); Carbon Dioxide 20.8 mmol/L (21.0-32.0); Chloride 104 mmol/L (98-108); Creatinine, Serum 0.94 mg/dL (0.70-1.20); EST Glomerular Filtration Rate 92 (>60); Globulin 2.9 g/dL (2.2-4.2); Glucose 181 mg/dL (70-99); Potassium 3.5 mmol/L (3.3-5.1); Protein, Total 6.9 g/dL (5.9-8.4); Sodium Level 140 mmol/L (133-145); Total Bilirubin 0.59 mg/dL (0.00-1.30)
[2024-07-20 20:44] LABS: International Normalized Ratio 1.1; Prothrombin Time (Protime)PT. 14.6 SECONDS (11.7-14.9)
[2024-07-20 20:50] LABS: Color, Urine Yellow (Yellow); Glucose, Dipstick Normal (Normal); Ketone-Dipstick 15 mg/dl (Negative); Leukocyte Esterase-Dipstick Negative /ul (Negative); Nitrite-Dipstick Negative (Negative); Occult Blood-Urine 150 /ul (Negative); Protein-Dipstick 100 mg/dl (Negative); Specific Gravity, Urine 1.025 (1.002-1.030); Urine Clarity Sl. Cloudy (Clear); Urine Urobilinogen 1 mg/dl (Normal)
[2024-07-20 20:50] LABS: Partial Thromboplast Time 25.1 Seconds (24.1-36.2)
[2024-07-20 20:55] LABS: Urine Bilirubin Dipstick 1 mg/dL (Negative)
[2024-07-20 21:18] LABS: Bacteria RARE /hpf (None Seen); Hyaline Cast 0-5 SEEN /lpf (0-5); Mucous, Urine 4+ /hpf (<or=2+); Red Blood Cells-Urine 0-5 SEEN /hpf (0-5); Squamous Epithelial Cells - UA 0-5 SEEN /hpf (0-5); White Blood Cells 10-25 SEEN /hpf (0-5)
--- NOTE | 2024-07-20 21:19 | CASEMGMT ---
Care Management Face to Face with patient for initial transition planning/care coordination assessment in the ED.? This mortgage loan underwriter introduced self and role at [facility]. Patient unable to answer questions, daughter in room and provided answers. Care providers, pharmacy, and demographics verified. Admitting Diagnosis: hypoxia Other diagnosis history: h/o CVA, HTN, seizures PCP: Jennifer Specialists: neurology and ENT Preferred Pharmacy: [facility] Insurance: ?[employer] [facility] Prescription Benefit: yes Living Will/HPOA: ?daughter has it filled out, not notarized LNOK: daughter Living Arrangements: patient lives with brother, brothers girlfriend and girlfriends niece Transportation: daughter DME: rollator, walker, shower chair, grab bars HHC: none SNF/Rehab: [facility] Community Resources: none Behavioral Health History: depression Patient goals: SNF placement preferred. Disposition Plan: admission to acute; RN CM/SW to follow for discharge planning needs that may arise. Janett Nath, MOLD CLOSER HELPER, LEGISLATIVE ANALYST
[2024-07-20] MEDS: levoFLOXacin IV 750 MG/150 ML BAG 100 MG IV (21:36)
--- NOTE | 2024-07-20 21:55 | CT_ITS ---
PROCEDURE: CT CHEST, ABD, PEL W/CONTRAST REASON FOR EXAM: COUGH, DIARRHEA TECHNIQUE: Chest, abdomen and pelvis CT with intravenous contrast. CONTRAST: COMPARISON: None. FINDINGS: CT CHEST: Examination is degraded by motion. Hardware: None. Lymph nodes: No mediastinal hilar or axillary lymphadenopathy. Heart and Vasculature: Normal heart size. No pericardial effusion. Thoracic aorta and pulmonary arteries are unremarkable. Lungs and Airways: Central airways are patent without endobronchial lesions. Airspace opacities in the bilateral lower lobes, concerning for an infectious process, such as pneumonia. No pneumothorax. No pleural effusion. Bones: Unremarkable. Esophagus is fluid-filled and moderately distended. CT ABDOMEN/PELVIS: Liver: Unremarkable. Gallbladder: Cholelithiasis Spleen: Unremarkable. Pancreas: Unremarkable. Adrenals: Unremarkable. Kidneys: Unremarkable. Bladder: Decompressed with Tyler catheter in place. Reproductive Organs: Unremarkable. Bowel: No bowel dilation or wall thickening. Moderate colonic stool. Appendix: The appendix is not identified. There is no inflammatory process identified in the right lower quadrant to suggest appendicitis. Lymph nodes: No suspicious lymph node enlargement. Vasculature: Major vascular structures are unremarkable. Peritoneum / Retroperitoneum: No ascites. No free air. Bones: Unremarkable. CT/CT Chest, Abd, Pel w/Contrast IMPRESSION: Airspace opacities in the bilateral lower lobes, concerning for pneumonia. No acute findings in the abdomen or pelvis. Cholelithiasis. One or more dose reduction techniques were used (e.g., Automated exposure contr ol, adjustment of the mA and/or kV according to patient size, use of iterative reconstruction technique). Reading Location: [facility]
--- NOTE | 2024-07-20 22:27 | HP.PCM.HOS_ITS ---
HPI - General General Date of Admission: 07/20/24 Date of Service: 07/20/24 Chief Complaint: cough, vomiting & diarrhea, weakness HPI Narrative GABRIELLA HAZEL, is a 59 M with pmhx of CVA with chronic left sided weakness, seizure disorder, HTN, who presents to the ER from home for cough, sob, nausea, vomiting diarrhea and weakness. The patient has had cough and congestion x 1 week. The last 2 days he developed nausea vomiting and diarrhea and has not been eating or drinking well. His daughter went to check on him today and found him very lethargic and weak, and struggling to take sips of electrolyte drink. He was also not taking his meds. Decision was made to call the squad and bring him to the ER for eval. In the ER he was found to have hypoxia with SpO2 84%RA subsequently improved to 92% on 6 lpm nasal cannula therapy. Temp was 10.3 , mild tachypnea. Pt had CXR demonstrating consolidation and a LA of 2.6. He was given levaquin for pna in the ER. Respiratory panel neg for flu/covid/rsv. [facility] Medical History (Updated 07/20/24 @ 22:54 by Patricio BIRD, PA) HTN (hypertension) Left-sided weakness CVA (cerebral vascular accident) Home Medications ?Medication ?Instructions ?Recorded ?Last Taken ?Type Lisinopril/Hydrochlorothiazide 1 tab PO DAILY 06/02/16 Unknown History [Zestoretic Tablet] aspirin 81 mg chewable tablet 81 mg PO DAILY@0800 05/14 05/29 Unknown History gemfibrozil 600 mg tablet 600 mg PO BIDAC 06/02/16 Unk nown History Ranitidine [Zantac] 300 mg PO QHS 01/04/18 Unkno wn History aluminum-mag hydroxide-simethicone 30 ml PO Q6H PRN DC N Gastric 01/07/18 Unknown Rx 400 mg-400 mg-40 mg/5 mL oral susp burning (Mag-Al Plus Extra Strength) arginine 7 gram-glutam 7 1 packet PO TIDCM 01/07/18 U nknown Rx gram-CaHMB 1.5 [id number]-uu-min oral pwd pkt (Vinicio (with collagen)) food supplemt, lactose-reduced 120 ml PO 4X/DAY Unknown Rx 0.08 gram-1.5 kcal/mL oral liquid (Ensure Enlive) menthol 0.44 %-zinc oxide 20.6 % 1 applic topical TID 01/07/18 Unknown Rx topical ointment (Calmoseptine) potassium chloride 20 mEq 20 meq PO DAILY ##1 01/07/18 Unknown Rx tablet,extended release(part/cryst) (Klor-Con M) psyllium husk (aspartame) 3.4 gram 1 packet PO DAILY P RN PRN 01/07/18 Unknown Rx oral powder packet (Metamucil CONSTIPATION Fiber Singles) sennosides 8.6 mg-docusate sodium 2 tab PO BID PRN PRN contipation 01/07/18 Unknown Rx 50 mg tablet (Stool Softener-Stimulant Laxative) trazodone 50 mg tablet 50 mg PO QHS PRN PRN Insomni a 01/07/18 Unknown Rx amlodipine 2.5 mg tablet 2.5 mg PO DAILY 07/13/24 Unk nown History atorvastatin 20 mg tablet 20 mg PO QHS 07/13/24 Unknow n History divalproex 125 mg capsule,delayed mg PO 07/13/24 Unkno wn History release sprinkle donepezil 10 mg tablet 10 mg PO DAILY 07/13/24 Unkn own History sertraline 25 mg tablet 75 mg PO DAILY 07/13/24 Unkn own History sertraline 50 mg tablet mg 07/13/24 Unknown History Allergy/AdvReac Type Severity Reaction Status Date / Time latex Allergy Rash Verified 07/20/24 19:38 Penicillins Allergy Swelling Verified 07/20/24 19:38 Family History (Updated 07/20/24 @ 22:50 by Patricio BIRD PA) Mother CVA (cerebral vascular accident) Father Heart disease Surgical History (Updated 07/20/24 @ 22:50 by Patricio BIRD PA) History of appendectomy Social History (Updated 07/20/24 @ 22:51 by Patricio BIRD, PA) household members: family housing: house Smoking Status: Current every day smoker substance use type: marijuana ROS Constitutional Constitutional: Reports anorexia, chills, fever(s) and weakness Eyes Eyes: Denies blurry vision, change in eye color or change in vision ENT HEENT: Reports nasal congestion; Denies dysphagia or ear pain Cardiovascular Cardiovascular: Denies chest pain, edema or lightheadedness Respiratory/Chest Respiratory/Chest: Reports cough, productive cough and shortness of breath at rest Gastrointestinal Gastrointestinal: Reports diarrhea, nausea and vomiting; Denies abdominal pain Genitourinary Genitourinary: Denies burning urination, difficulty urinating or dysuria Musculoskeletal Musculoskeletal: Denies arthralgias, back pain or joint pain Neurologic Neurologic: Denies abnormal gait, abnormal speech or confusion Psychiatric Psychiatric: Denies anxiety or depression Endocrine Endocrinology: Denies change in body appearance Hematologic/Lymphatic Hematologic/Lymphatic: Denies anemia Allergic/Immunologic Allergic/Immunologic: Denies rhinitis Vital Signs Vital Signs Vital Signs: 07/20/24 19:37 07/20/24 19:37 07/20/24 19:37 Temperature 101.3 F H Temperature Source Oral Pulse Rate 112 H Respiratory Rate 24 H Respiratory Effort Short of Breath Respiratory Pattern Tachypnea Blood Pressure 129/89 H Blood Pressure Mean 102 Pulse Ox 84 88 Oxygen Delivery Method Room Air Nasal Cannula Oxygen Flow Rate (L/min) 6 07/20/24 19:41 07/20/24 19:49 07/20/24 20:29 Temperature 101.3 F H Temperature Source Oral Pulse Rate 112 H Respiratory Rate 24 H Respiratory Effort Respiratory Pattern Blood Pressure 129/89 H Blood Pressure Mean 102 Pulse Ox 88 92 96 Oxygen Delivery Method Nasal Cannula Non-Rebreather High Flow Oxygen Flow Rate (L/min) 6 10 10 07/20/24 20:41 07/20/24 21:00 07/20/24 21:36 Temperature 99.4 F H 99.4 F H 99 F Temperature Source Oral Oral Pulse Rate 102 H 100 98 Respiratory Rate 25 H 25 H 24 H Respiratory Effort Respiratory Pattern Blood Pressure 146/84 H 156/85 H 146/91 H Blood Pressure Mean 104 108 109 Pulse Ox 96 96 95 Oxygen Delivery Method High Flow High Flow Oxygen Flow Rate (L/min) 10 07/20/24 22:00 Temperature 98.9 F Temperature Source Oral Pulse Rate 97 Respiratory Rate 22 H Respiratory Effort Respiratory Pattern Blood Pressure 151/99 H Blood Pressure Mean 116 Pulse Ox 92 Oxygen Delivery Method High Flow Oxygen Flow Rate (L/min) 6 Weight Weight: 100.4 kg Body Mass Index (BMI) 31.7 Results Lab / Micro Data 07/20/24 20:00 07/20/24 20:00 Labs: Laboratory Results - last 24 hr 07/20/24 19:43: Lactic Acid 2.6 H* 07/20/24 20:00: WBC 4.6, RBC 4.50 L, Hgb 15.2, Hct 43.0, MCV 95.6 H, MCH 33.8 H, MCHC 35.3, RDW Std Deviation 49.6 H, RDW Coeff of Cash 13.9, Plt Count 182, MPV 9.6, Immature Gran % (Auto) 0.200, Neut % (Auto) 86.3 H, Lymph % (Auto) 6.0 L, [place] % (Auto) 7.3, Eos % (Auto) 0.0, Baso % (Auto) 0.2, Absolute Neuts (auto) 4.0, Absolute Lymphs (auto) 0.28 L, Nucleated RBC % 0, PT 14.6, INR 1.1, APTT 25.1, Sodium 140, Potassium 3.5, Chloride 104, Carbon Dioxide 20.8 L, Anion Gap 16 H, BUN 24 H, Creatinine 0.94, Estim Creat Clear Calc 98.00, Est GFR (MDRD) Non-Af 92, BUN/Creatinine Ratio 25.1 H, Glucose 181 H, Calcium 9.2, Total Bilirubin 0.59, AST 15, ALT 7, Alkaline Phosphatase 57, Total Protein 6.9, Albumin 4.0, Globulin 2.9, Albumin/Globulin Ratio 1.4 07/20/24 20:30: Urine Color Yellow, Urine Clarity Sl. Cloudy, Urine pH 5.0, Ur Specific [place] 1.025, Urine Protein 100 H, Urine Glucose (UA) Normal, Urine Ketones 15 H, Urine Occult Blood 150 H, Urine Nitrite Negative, Urine Bilirubin 1 H, Urine Urobilinogen 1 H, Ur Leukocyte Esterase Negative, Urine RBC 0-5 SEEN, Urine WBC 10-25 SEEN, Ur Squamous Epith Cells 0-5 SEEN, Urine Bacteria RARE, Hyaline Casts 0-5 SEEN, Urine Mucus 4+ Micro: Microbiology 07/20/24 20:00 Mucosa - Nose SARS-CoV-2, Influenza & RSV (PCR) - Final Imaging Radiology Impression Chest X-Ray 07/20/24 19:52 IMPRESSION: 1. Development of patchy perihilar and left lower lung consolidations, compatible with pneumonitis/pneumonia. 2. Small left pleural effusion. Reading Location: [facility] Assessment & Plan Assessment/Plan (1) Acute gastroenteritis: PLAN: 1. Acute hypoxic respiratory failure 2/2 community acquired pneumonia complicated by acute gastroenteritis - pt not on o2 at baseline now requiring 6lpm to maintain sats. CXR demonstrating LLL consolidation. Fevers, tachypnea but no elevated WC count. LA elevated at 2.6 and anion gap 16, will trend. CT chest/abd/pelvis requested and pending at this time, in the meanwhile will proceed with iv abx with Levaquin and Flagyl. Blood cultures pending, request sputum culture, urine strep/legionella antigens. Continue o2, duonebs q6h, incentive spirometry. Repeat AM CBC/CMP/LA 2 Dehydration 2/2 gastroenteritis - Mild elevation in BUN. IV rehydration NS 100cc/hr. Request enteric panel and stool lacto/wbc. 3. Worsening of debility 2/2 #1 - Chronic left sided weakness 2/2 prior CVA. PT OT ordered daughter who is HPOA notes desire for SNF placement at discharge. 4. Hx CVA noted above - chronic left sided weakness continue asa/statin 5. Hx dementia - on donepezil 6. Anx/depression - continue sertraline and trazodone when appropriate DVT ppx lovenox This patient was seen by Patricio Mtz PA-C under the supervision of Doctor Pinto. code status : pt brought paperwork indicating he is DNRCC (2) Debility: (3) Community acquired pneumonia: (4) Acute hypoxic respiratory failure:
[2024-07-20] MEDS: 0.9% Normal Saline (1000mL) 1,000 ML 100 ML IV (23:39)
[2024-07-20] MEDS: 0.9% Saline Lock 10 ML Syringe IV (23:40)
[2024-07-21] VITALS (19 sets, daily range): BP systolic 119–133; BP diastolic 58–74; PULSE 76–92; RESP 16–40; TEMP 37.1–38.7; O2SAT 86–99
[2024-07-21 01:42] LABS: Lactic Acid 2.6 mmol/L (0.0-2.0)
[2024-07-21 02:21] LABS: Lactic Acid 1.3 mmol/L (0.0-2.0)
[2024-07-21] MEDS: Acetaminophen 500 MG Tablet 1000 MG PO (03:03)
[2024-07-21] MEDS: metroNIDAZOLE 500 MG/100 ML BAG 100 MG IV ×3 (05:15→21:33)
[2024-07-21 05:49] LABS: Absolute Lymphocyte Count 0.55 X10^3/uL (0.83-4.51); Basophil# 0.02 X10^3/uL; Basophil% 0.4 % (0-1); Hematocrit 36.9 % (40-54); Hemoglobin 12.6 g/dL (13.0-16.5); Lymphocyte # 0.55 X10^3/ul (0.83-4.51); Lymphocyte % 11.1 % (19-41); Mean Corp Hgb Conc 34.1 g/dL (32-36); Mean Corpuscular Hgb 33.2 pg (27.0-32.0); Mean Corpuscular Volume 97.4 fL (80-94); Mean Platelet Vol. 10.2 fl (6.2-12.0); Monocyte# 0.41 X10^3/uL; Monocyte% 8.3 % (0-10); NRBC Flagged by Analyzer 0 % (0-5); Neutrophil # 3.97 X10^3/uL (2.7-7.7); POSITIVE DIFFERENTIAL YES; POSITIVE MORPHOLOGY YES; Platelet Count 146 K/mm3 (150-450); RBC Distribution Width CV 14.3 % (11.6-14.6); RBC Distribution Width SD 51.2 fl (35.1-43.9); Red Blood Count 3.79 M/mm3 (4.6-6.2)
[2024-07-21 06:11] LABS: Differential Indicated SCAN CRITERIA MET
[2024-07-21 06:13] LABS: Allen Test Positive; Base Excess 0 mmol/L (-2 to +2); Bicarbonate 24.1 mmol/L (22-26); Blood Gas Specimen Type ART; Comment 55L 71 fiO2; Mode Not entered; O2 Delivery Device AIRVO; PO2 74 mmHG (75-100); SITE L Radial; SO2 95 % (95-99); Total Carbon Dioxide 25 mmol/L; pCO2 37.3 mmHg (35-45); pH 7.42 (7.35-7.45)
[2024-07-21 06:34] LABS: ALB/GLOB Ratio 1.3 RATIO (0.9-2.4); AST(SGOT) 21 U/L (<=37); Alanine Aminotransfer ALT/SGPT 5 U/L (<=46); Albumin, Serum 3.1 g/dL (3.4-4.8); Alkaline Phosphatase 42 U/L (40-129); Anion Gap 11 (5-15); BUN 18 mg/dL (4-19); BUN/Creat Ratio 22.3 RATIO (10-20); Calcium,Total 7.9 mg/dL (7.6-11.0); Carbon Dioxide 20.7 mmol/L (21.0-32.0); Chloride 108 mmol/L (98-108); EST Glomerular Filtration Rate 101 (>60); Estimated Creatinine Clearance 114.71 ml/min (50-250); Globulin 2.4 g/dL (2.2-4.2); Glucose 130 mg/dL (70-99); Potassium 3.4 mmol/L (3.3-5.1); Protein, Total 5.6 g/dL (5.9-8.4); Sodium Level 140 mmol/L (133-145); Total Bilirubin 0.48 mg/dL (0.00-1.30)
[2024-07-21] MEDS: Ipratropium/Albuterol Sulfate 3 ML AMPUL.NEB INHALATION ×3 (07:07→19:53)
[2024-07-21 08:29] LABS: Reactive Lymphocyte 1+
[2024-07-21 08:30] LABS: Platelet Estimate SLT DEC (ADEQ)
--- NOTE | 2024-07-21 08:54 | PCM.PN.HOSP ---
Reason for Visit Reason for Visit: Diagnoses Pneumonia, unspecified organism (07/20/24) Acute respiratory failure with hypoxia (07/20/24) Noninfective gastroenteritis and colitis, unspecified (07/20/24) Other malaise (07/20/24) Subjective Subjective Breathing better, but still on Airvo. Objective Data Objective Data Vital Signs: Vital Signs Temp Pulse Resp BP Pulse Ox O2 Del Method O2 Flow Rate 37.4 C H 79 20 H 119/74 99 Airvo 55 07/21/24 08:10 07/21/24 08:10 07/21/24 08:10 07/21/24 08:10 07/21/24 08:10 07/21/24 08:10 07/21/24 08:10 FiO2 64 07/21/24 08:10 Oxygen Flow Rate (L/min) 55 Oxygen Delivery Method Airvo Weight: 99.6 kg Body Mass Index (BMI) 31.5 Intake & Output: Intake and Output for Last 24 Hours 07/20/24 07/20/24 07/21/24 00:59 23:59 23:59 Intake Total 3150 / 3150 100 / 100 Output Total 625 / 625 Balance 3150 / 2725 -525 / -525 Lab / Micro Data 07/21/24 05:00 07/21/24 05:00 Labs: Laboratory Results - last 24 hr 07/20/24 19:43: Lactic Acid 2.6 H* 07/20/24 20:00: WBC 4.6, RBC 4.50 L, Hgb 15.2, Hct 43.0, MCV 95.6 H, MCH 33.8 H, MCHC 35.3, RDW Std Deviation 49.6 H, RDW Coeff of Cash 13.9, Plt Count 182, MPV 9.6, Immature Gran % (Auto) 0.200, Neut % (Auto) 86.3 H, Lymph % (Auto) 6.0 L, [place] % (Auto) 7.3, Eos % (Auto) 0.0, Baso % (Auto) 0.2, Absolute Neuts (auto) 4.0, Absolute Lymphs (auto) 0.28 L, Nucleated RBC % 0, PT 14.6, INR 1.1, APTT 25.1, Sodium 140, Potassium 3.5, Chloride 104, Carbon Dioxide 20.8 L, Anion Gap 16 H, BUN 24 H, Creatinine 0.94, Estim Creat Clear Calc 98.00, Est GFR (MDRD) Non-Af 92, BUN/Creatinine Ratio 25.1 H, Glucose 181 H, Calcium 9.2, Total Bilirubin 0.59, AST 15, ALT 7, Alkaline Phosphatase 57, Total Protein 6.9, Albumin 4.0, Globulin 2.9, Albumin/Globulin Ratio 1.4 07/20/24 20:30: Urine Color Yellow, Urine Clarity Sl. Cloudy, Urine pH 5.0, Ur Specific [place] 1.025, Urine Protein 100 H, Urine Glucose (UA) Normal, Urine Ketones 15 H, Urine Occult Blood 150 H, Urine Nitrite Negative, Urine Bilirubin 1 H, Urine Urobilinogen 1 H, Ur Leukocyte Esterase Negative, Urine RBC 0-5 SEEN, Urine WBC 10-25 SEEN, Ur Squamous Epith Cells 0-5 SEEN, Urine Bacteria RARE, Hyaline Casts 0-5 SEEN, Urine Mucus 4+ 07/21/24 01:38: Lactic Acid 1.3 07/21/24 05:00: WBC 5.0, RBC 3.79 L, Hgb 12.6 L, Hct 36.9 L, MCV 97.4 H, MCH 33.2 H, MCHC 34.1, RDW Std Deviation 51.2 H, RDW Coeff of Csah 14.3, Plt Count 146 L, MPV 10.2, Immature Gran % (Auto) 0.200, Neut % (Auto) 80.0 H, Lymph % (Auto) 11.1 L, [place] % (Auto) 8.3, Eos % (Auto) 0.0, Baso % (Auto) 0.4, Absolute Neuts (auto) 4.0, Absolute Lymphs (auto) 0.55 L, Nucleated RBC % 0, Reactive Lymphocytes 1+, Platelet Estimate SLT DEC, Sodium 140, Potassium 3.4, Chloride 108, Carbon Dioxide 20.7 L, Anion Gap 11, BUN 18, Creatinine 0.80, Estim Creat Clear Calc 114.71, Est GFR (MDRD) Non-Af 101, BUN/Creatinine Ratio 22.3 H, Glucose 130 H, Calcium 7.9, Total Bilirubin 0.48, AST 21, ALT 5, Alkaline Phosphatase 42, Total Protein 5.6 L, Albumin 3.1 L, Globulin 2.4, Albumin/Globulin Ratio 1.3 Micro: Microbiology 07/21/24 00:45 Urine Catheter - Catheter Legionella Antigen - Final 07/21/24 00:45 Urine Catheter - Catheter Streptococcus pneumoniae Antigen (M - Final 07/20/24 20:00 Mucosa - Nose SARS-CoV-2, Influenza & RSV (PCR) - Final ABG Data ABG results: ABG 07/21/24 06:08 Specimen Type ART Sample Site L Radial pH 7.42 Bicarbonate Actual 24.1 Total CO2 25 Base Excess 0 O2 Saturation 95 O2 % 71.0 ABG pCO2 37.3 ABG pO2 74 L Alberto Test Positive O2 Delivery Device AIRVO Vent Mode Not entered Clinical Comments 55L 71 fiO2 Radiography Diagnostic Testing: Radiology Impression Chest X-Ray 07/20/24 19:52 IMPRESSION: 1. Development of patchy perihilar and left lower lung consolidations, compatible with pneumonitis/pneumonia. 2. Small left pleural effusion. Reading Location: [facility] Chest/Abdomen/Pelvis CT 07/20/24 21:55 IMPRESSION: Airspace opacities in the bilateral lower lobes, concerning for pneumonia. No acute findings in the abdomen or pelvis. Cholelithiasis. One or more dose reduction techniques were used (e.g., Automated exposure control, adjustment of the mA and/or kV according to patient size, use of iterative reconstruction technique). Reading Location: [facility] Physical Exam Const alert and no apparent distress Constitutional Narrative: on AirVo, no respiratory distress. HEENT head/scalp atraumatic and moist oral mucous membranes Resp normal respiratory effort and no retractions Resp Narrative: bibasilar crackles. Cardio regular rate, regular rhythm, S1 normal heart sound and S2 normal heart sound GI normal to inspection, nondistended, normoactive bowel sounds, soft to palpation, non-tender and non-distended Extremity normal to inspection Neuro Sensorium / Orientation: awake and alert Assessment & Plan Assessment/Plan (1) Acute hypoxic respiratory failure: PLAN: 2/2 bilateral pneumonia on Airvo, wean oxygen as tolerated. (2) Pneumonia: PLAN: Bibasilar. May be aspiration. Continue abx with LVQ and metronidazole. pulmonary toilet. Speech therapy evaluation. Strep and legionella antigens negative. SCx pending. (3) Acute gastroenteritis: PLAN: enteric panel pending. supportive mgmt PLAN: Plan Chronic conditions: depression continue with sertraline dementia: continue donezapil. HTN: continue amlodipine. HLD: continue w statin. seizure disorder: continue divalproex VTE prophylaxis: LMWH. Charges/Coding Visit Charges Inpatient E&M: 13417 Subs Hosp L2
[2024-07-21] MEDS: guaiFENesin 1,200 MG Tablet 1200 MG PO ×2 (09:08→21:30)
[2024-07-21] MEDS: Enoxaparin 40 MG/0.4 ML Syringe SC (09:08)
[2024-07-21] MEDS: amLODIPine 2.5 MG Tablet PO (09:09)
[2024-07-21] MEDS: Donepezil HCl 10 MG Tablet PO (09:09)
[2024-07-21] MEDS: Sertraline 50 MG Tablet 75 MG PO (09:09)
--- NOTE | 2024-07-21 10:54 | CASEMGMT ---
ELISABETH received a message from [place] nurse family independence case manager with [facility]. ([phone]). ELISABETH called Jolynn back and left her a voice mail with ELISABETH's name and number. Lita MCKOY
[2024-07-21] MEDS: 0.9% Saline Lock 10 ML Syringe IV ×2 (10:59→21:30)
[2024-07-21] MEDS: Divalproex Sodium 125 MG SPRINKLE 750 MG PO (11:24)
[2024-07-21] MEDS: Nystatin Powder 15gm Bottle 1 APPLIC TOPICAL ×2 (11:25→21:33)
[2024-07-21] MEDS: Atorvastatin Calcium 20 MG Tablet PO (21:30)
[2024-07-21] MEDS: Divalproex Sodium 125 MG SPRINKLE 625 MG PO (21:31)
[2024-07-21] MEDS: levoFLOXacin IV 750 MG/150 ML BAG 100 MG IV (23:14)
[2024-07-22] VITALS (8 sets, daily range): BP systolic 117–126; BP diastolic 61–79; PULSE 65–83; RESP 17–20; TEMP 36.7–37.3; O2SAT 96–99
[2024-07-22] MEDS: metroNIDAZOLE 500 MG/100 ML BAG 100 MG IV ×3 (05:16→21:44)
[2024-07-22 06:00] LABS: Absolute Lymphocyte Count 1.08 X10^3/uL (0.83-4.51); Absolute Neutrophil Count 5.4 X10^3/uL (2.0-7.7); Basophil# 0.03 X10^3/uL; Basophil% 0.4 % (0-1); Eosinophil# 0.02 X10^3/uL; Eosinophils% 0.3 % (0-5); Hemoglobin 11.4 g/dL (13.0-16.5); Lymphocyte # 1.08 X10^3/ul (0.83-4.51); Lymphocyte % 15.1 % (19-41); Mean Corp Hgb Conc 34.5 g/dL (32-36); Mean Corpuscular Hgb 33.2 pg (27.0-32.0); Mean Corpuscular Volume 96.2 fL (80-94); Mean Platelet Vol. 9.7 fl (6.2-12.0); Monocyte# 0.54 X10^3/uL; Monocyte% 7.6 % (0-10); NRBC Flagged by Analyzer 0 % (0-5); Neutrophil # 5.41 X10^3/uL (2.7-7.7); Neutrophil % 75.8 % (47-70); Platelet Count 149 K/mm3 (150-450); RBC Distribution Width CV 13.8 % (11.6-14.6); RBC Distribution Width SD 49.1 fl (35.1-43.9); Red Blood Count 3.43 M/mm3 (4.6-6.2); White Blood Count 7.1 K/mm3 (4.4-11.0)
[2024-07-22 06:39] LABS: Anion Gap 8 (5-15); BUN 13 mg/dL (4-19); BUN/Creat Ratio 19.3 RATIO (10-20); Calcium,Total 8.2 mg/dL (7.6-11.0); Carbon Dioxide 25.2 mmol/L (21.0-32.0); Chloride 105 mmol/L (98-108); Creatinine, Serum 0.65 mg/dL (0.70-1.20); EST Glomerular Filtration Rate 107 (>60); Estimated Creatinine Clearance 141.19 ml/min (50-250); Glucose 100 mg/dL (70-99); Potassium 3.2 mmol/L (3.3-5.1); Sodium Level 137 mmol/L (133-145)
[2024-07-22] MEDS: Ipratropium/Albuterol Sulfate 3 ML AMPUL.NEB INHALATION ×2 (07:36→19:49)
--- NOTE | 2024-07-22 08:57 | PCM.PN.HOSP ---
Reason for Visit Reason for Visit: Diagnoses Pneumonia, unspecified organism (07/20/24) Acute respiratory failure with hypoxia (07/20/24) Noninfective gastroenteritis and colitis, unspecified (07/20/24) Other malaise (07/20/24) Subjective Subjective No further nausea vomiting. Objective Data Objective Data Vital Signs: Vital Signs Temp Pulse Resp BP Pulse Ox O2 Del Method O2 Flow Rate 37.1 C 83 17 124/69 H 99 High Flow 9 07/22/24 05:11 07/22/24 05:11 07/22/24 05:11 07/22/24 05:11 07/22/24 05:11 07/22/24 05:13 07/22/24 05:13 FiO2 64 07/21/24 13:52 Oxygen Flow Rate (L/min) 9 Oxygen Delivery Method High Flow Weight: 99.6 kg Body Mass Index (BMI) 31.5 Intake & Output: Intake and Output for Last 24 Hours 07/20/24 07/21/24 07/22/24 23:59 23:59 23:59 Intake Total 3150 / 3150 2260 / 2260 250 / 250 Output Total 625 / 1275 950 / 950 Balance 3150 / 2725 1635 / 985 -700 / -700 Lab / Micro Data 07/22/24 05:41 07/22/24 05:41 Labs: Laboratory Results - last 24 hr 07/22/24 05:41: WBC 7.1, RBC 3.43 L, Hgb 11.4 L, Hct 33.0 L, MCV 96.2 H, MCH 33.2 H, MCHC 34.5, RDW Std Deviation 49.1 H, RDW Coeff of Cash 13.8, Plt Count 149 L, MPV 9.7, Immature Gran % (Auto) 0.800, Neut % (Auto) 75.8 H, Lymph % (Auto) 15.1 L, [place] % (Auto) 7.6, Eos % (Auto) 0.3, Baso % (Auto) 0.4, Absolute Neuts (auto) 5.4, Absolute Lymphs (auto) 1.08, Nucleated RBC % 0, Sodium 137, Potassium 3.2 L, Chloride 105, Carbon Dioxide 25.2, Anion Gap 8, BUN 13, Creatinine 0.65 L, Estim Creat Clear Calc 141.19, Est GFR (MDRD) Non-Af 107, BUN/Creatinine Ratio 19.3, Glucose 100 H, Calcium 8.2 Micro: Microbiology 07/20/24 12:42 Stool Stool Lactoferrin - Final 07/20/24 12:42 Stool Enteric Bacteriology - Final Norovirus 07/20/24 20:30 Urine Catheter - Catheter Urine Culture - Preliminary Culture exhibits no growth. 07/21/24 00:45 Sputum, Expectorated/Coughed Gram Stain - Final 07/21/24 00:45 Urine Catheter - Catheter Legionella Antigen - Final 07/21/24 00:45 Urine Catheter - Catheter Streptococcus pneumoniae Antigen (M - Final 07/20/24 20:00 Mucosa - Nose SARS-CoV-2, Influenza & RSV (PCR) - Final Physical Exam Const alert and no apparent distress HEENT head/scalp atraumatic and moist oral mucous membranes Resp normal respiratory effort, no retractions, no use of accessory muscles and clear to auscultation bilaterally Cardio regular rate, regular rhythm, S1 normal heart sound and S2 normal heart sound GI normal to inspection, nondistended, normoactive bowel sounds, soft to palpation, non-tender and non-distended Extremity normal to inspection, full ROM and no clubbing, cyanosis or edema Neuro Sensorium / Orientation: awake and alert Assessment & Plan Assessment/Plan (1) Acute hypoxic respiratory failure: PLAN: 2/2 bilateral pneumonia Overall improving. Patient now down to 7 L nasal cannula (2) Pneumonia: PLAN: Bibasilar. May be aspiration. Continue abx with LVQ and metronidazole. pulmonary toilet. Speech therapy evaluation. Strep and legionella antigens negative. SCx pending. (3) Acute gastroenteritis: PLAN: Secondary to norovirus. This was confirmed on the . supportive mgmt PLAN: Plan Chronic conditions: depression continue with sertraline dementia: continue donezapil. HTN: continue amlodipine. HLD: continue w statin. seizure disorder: continue divalproex VTE prophylaxis: LMWH. Charges/Coding Visit Charges Inpatient E&M: 57148 Subs Hosp L2
[2024-07-22] MEDS: Enoxaparin 40 MG/0.4 ML Syringe SC (10:44)
[2024-07-22] MEDS: Sertraline 50 MG Tablet 75 MG PO (10:45)
[2024-07-22] MEDS: amLODIPine 2.5 MG Tablet PO (10:45)
[2024-07-22] MEDS: guaiFENesin 1,200 MG Tablet 1200 MG PO ×2 (10:45→21:45)
[2024-07-22] MEDS: Divalproex Sodium 125 MG SPRINKLE 750 MG PO (10:45)
[2024-07-22] MEDS: Donepezil HCl 10 MG Tablet PO (10:45)
[2024-07-22] MEDS: Nystatin Powder 15gm Bottle 1 APPLIC TOPICAL ×2 (10:46→21:45)
[2024-07-22] MEDS: Potassium Chloride Oral Tablet 20 MEQ 60 MEQ PO (10:47)
--- NOTE | 2024-07-22 15:32 | CASEMGMT ---
SW reviewed therapy and they are recommending home with help. ELISABETH met with patient. Introduced self and role at [facility]. ELISABETH discussed d/c plan and that family was interested in patient going somewhere for rehab. Patient said he would rather go home. ELISABETH asked about home health. Patient declined stating he is already set up with outpatient therapy at [facility]. He went for his evaluation. He is waiting on them to contact his daughter about setting up another appt. ELISABETH notified GIOVANI TRACY. Lita Weldon HUMAN RESOURCES BENEFITS ADMINISTRATOR LEELEE
[2024-07-22] MEDS: Acetaminophen 325 MG Tablet 650 MG PO (16:22)
[2024-07-22] MEDS: levoFLOXacin IV 750 MG/150 ML BAG 100 MG IV (21:44)
[2024-07-22] MEDS: Atorvastatin Calcium 20 MG Tablet PO (21:45)
[2024-07-22] MEDS: Divalproex Sodium 125 MG SPRINKLE 625 MG PO (21:45)
[2024-07-23] VITALS (7 sets, daily range): BP systolic 119–125; BP diastolic 68–72; PULSE 63–80; RESP 16–20; TEMP 36.3–36.7; O2SAT 90–98
[2024-07-23] MEDS: metroNIDAZOLE 500 MG/100 ML BAG 100 MG IV ×2 (06:30→14:58)
[2024-07-23] MEDS: Ipratropium/Albuterol Sulfate 3 ML AMPUL.NEB INHALATION ×2 (07:40→13:16)
--- NOTE | 2024-07-23 07:50 | PN.HOSP_ITS ---
Reason for Visit Reason for Visit: Diagnoses Pneumonia, unspecified organism (07/20/24) Acute respiratory failure with hypoxia (07/20/24) Noninfective gastroenteritis and colitis, unspecified (07/20/24) Other malaise (07/20/24) Subjective Subjective Breathing better. Objective Data Objective Data Vital Signs: Vital Signs Temp Pulse Resp BP Pulse Ox O2 Del Method O2 Flow Rate 36.7 C 63 16 119/72 98 High Flow 5 07/23/24 03:23 07/23/24 03:23 07/23/24 03:23 07/23/24 03:23 07/23/24 03:23 07/23/24 03:30 07/23/24 03:30 FiO2 64 07/21/24 13:52 Oxygen Flow Rate (L/min) 5 Oxygen Delivery Method High Flow Weight: 99.6 kg Body Mass Index (BMI) 31.5 Intake & Output: Intake and Output for Last 24 Hours 07/21/24 07/22/24 07/23/24 23:59 23:59 23:59 Intake Total 2260 / 2260 1100 / 1100 Output Total 625 / 1275 1300 / 2200 1800 / 1800 Balance 1635 / 985 -200 / -1100 -1800 / -1800 Lab / Micro Data 07/23/24 08:14 07/23/24 08:14 Micro: Microbiology 07/20/24 12:42 Stool Stool Lactoferrin - Final 07/20/24 12:42 Stool Enteric Bacteriology - Final Norovirus 07/21/24 00:45 Sputum, Expectorated/Coughed Gram Stain - Final 07/21/24 00:45 Sputum, Expectorated/Coughed Respiratory Culture - Preliminary 07/20/24 20:30 Urine Catheter - Catheter Urine Culture - Preliminary Culture exhibits no growth. 07/21/24 00:45 Urine Catheter - Catheter Legionella Antigen - Final 07/21/24 00:45 Urine Catheter - Catheter Streptococcus pneumoniae Antigen (M - Final 07/20/24 20:00 Mucosa - Nose SARS-CoV-2, Influenza & RSV (PCR) - Final Physical Exam Const alert and no apparent distress HEENT head/scalp atraumatic and moist oral mucous membranes Resp normal respiratory effort, no retractions, no use of accessory muscles and clear to auscultation bilaterally Cardio regular rate, regular rhythm, S1 normal heart sound and S2 normal heart sound GI normal to inspection, nondistended, normoactive bowel sounds, soft to palpation, non-tender and non-distended Assessment & Plan Assessment/Plan (1) Acute hypoxic respiratory failure: PLAN: 2/2 bilateral pneumonia Overall improving. Home oxygen evaluation today shows that he is 92% on RA at rest and 90% with activity, therefore, no oxygen required. (2) Pneumonia: PLAN: Bibasilar. Gram negative v aspiration. Continue abx with LVQ and metronidazole. pulmonary toilet. Speech therapy evaluation. Strep and legionella antigens negative. SCx pending. Discharge with levofloxacin to complete a 7-day course of abx. (3) Acute gastroenteritis: PLAN: Secondary to norovirus. This was confirmed on the . supportive mgmt PLAN: Plan Chronic conditions: * depression continue with sertraline * dementia: continue donezapil. * HTN: continue amlodipine. * HLD: continue w statin. * seizure disorder: continue divalproex VTE prophylaxis: LMWH.
[2024-07-23 08:42] LABS: Absolute Lymphocyte Count 0.84 X10^3/uL (0.83-4.51); Absolute Neutrophil Count 5.6 X10^3/uL (2.0-7.7); Basophil# 0.02 X10^3/uL; Basophil% 0.3 % (0-1); Eosinophil# 0.05 X10^3/uL; Eosinophils% 0.7 % (0-5); Hematocrit 34.9 % (40-54); Hemoglobin 12.2 g/dL (13.0-16.5); Lymphocyte # 0.84 X10^3/ul (0.83-4.51); Lymphocyte % 11.8 % (19-41); Mean Corpuscular Hgb 33.7 pg (27.0-32.0); Mean Corpuscular Volume 96.4 fL (80-94); Mean Platelet Vol. 9.8 fl (6.2-12.0); Monocyte# 0.52 X10^3/uL; Monocyte% 7.3 % (0-10); NRBC Flagged by Analyzer 0 % (0-5); Neutrophil # 5.56 X10^3/uL (2.7-7.7); Neutrophil % 78.5 % (47-70); Platelet Count 171 K/mm3 (150-450); RBC Distribution Width CV 13.8 % (11.6-14.6); RBC Distribution Width SD 49.1 fl (35.1-43.9); Red Blood Count 3.62 M/mm3 (4.6-6.2); White Blood Count 7.1 K/mm3 (4.4-11.0)
[2024-07-23 09:33] LABS: Anion Gap 10 (5-15); BUN 11 mg/dL (4-19); BUN/Creat Ratio 17.6 RATIO (10-20); Calcium,Total 8.3 mg/dL (7.6-11.0); Carbon Dioxide 24.9 mmol/L (21.0-32.0); Chloride 105 mmol/L (98-108); Creatinine, Serum 0.61 mg/dL (0.70-1.20); EST Glomerular Filtration Rate 109 (>60); Estimated Creatinine Clearance 150.45 ml/min (50-250); Glucose 111 mg/dL (70-99); Potassium 3.8 mmol/L (3.3-5.1); Sodium Level 140 mmol/L (133-145)
[2024-07-23] MEDS: Donepezil HCl 10 MG Tablet PO (10:24)
[2024-07-23] MEDS: amLODIPine 2.5 MG Tablet PO (10:24)
[2024-07-23] MEDS: guaiFENesin 1,200 MG Tablet 1200 MG PO (10:24)
[2024-07-23] MEDS: Divalproex Sodium 125 MG SPRINKLE 750 MG PO (10:25)
[2024-07-23] MEDS: Sertraline 50 MG Tablet 75 MG PO (10:26)
[2024-07-23] MEDS: Enoxaparin 40 MG/0.4 ML Syringe SC (10:26)
[2024-07-23] MEDS: Nystatin Powder 15gm Bottle 1 APPLIC TOPICAL (10:27)
--- NOTE | 2024-07-23 11:52 | CASEMGMT ---
Addendum entered by Gwendolyn Ramos 07/23/24 12:40: DC order is in. Rx's have been sent to [facility]. GIOVANI TRACY to room. Pt sitting up in chair. He states his dtr will be taking him home and they can go to [facility] today to get his new Rx's. He plans to go to [facility] for OP therapy. He denies having any discharge needs/concerns. Original Note: GIOVANI TRACY NOTE: Home O2 amb testing has been completed and pt does not qualify for home O2. Reviewed PT notes. Pt ambulated 30 ft w/use of WW and min ARalf PEREZ RN CM
--- NOTE | 2024-07-23 11:56 | DS.PCM_ITS ---
Providers Date of Admission: 07/20/24 Primary Care Physician: Lindsay Rodriguez, CLINIC NURSE-C Reason For Visit: PNEUMONIA, RESPIRATORY FAILURE, DEHYDRATION, Diagnosis Discharge Diagnosis (1) Acute hypoxic respiratory failure: Status: Acute Code(s): J96.01 - Acute respiratory failure with hypoxia Plan: 2/2 bilateral pneumonia Overall improving. Home oxygen evaluation today shows that he is 92% on RA at rest and 90% with activity, therefore, no oxygen required. (2) Pneumonia: Status: Acute Code(s): J18.9 - Pneumonia, unspecified organism Plan: Bibasilar. Gram negative v aspiration. Continue abx with LVQ and metronidazole. pulmonary toilet. Speech therapy evaluation. Strep and legionella antigens negative. SCx pending. Discharge with levofloxacin to complete a 7-day course of abx. (3) Acute gastroenteritis: Status: Acute Code(s): K52.9 - Noninfective gastroenteritis and colitis, unspecified Plan: Secondary to norovirus. This was confirmed on the . supportive mgmt Plan Chronic conditions: * depression continue with sertraline * dementia: continue donezapil. * HTN: continue amlodipine. * HLD: continue w statin. * seizure disorder: continue divalproex VTE prophylaxis: LMWH. Medications at Discharge Home Medications aspirin 81 mg chewable tablet 81 mg PO DAILY@0800 blood thinner 06/02/16 gemfibrozil 600 mg tablet 600 mg PO BIDAC lowers cholesterol 06/02/16 aluminum-mag hydroxide-simethicone 400 mg-400 mg-40 mg/5 mL oral susp (Mag-Al Plus Extra Strength) 30 ml PO Q6H PRN PRN Gastric burning 01/07/18 menthol 0.44 %-zinc oxide 20.6 % topical ointment (Calmoseptine) 1 applic topical TID 01/07/18 potassium chloride 20 mEq tablet,extended release(part/cryst) (Klor-Con M) 20 meq PO DAILY supplement #1 TABLET 01/07/18 trazodone 50 mg tablet 50 mg PO QHS PRN PRN Insomnia 01/07/18 amlodipine 2.5 mg tablet 2.5 mg PO DAILY BP 07/13/24 atorvastatin 20 mg tablet 20 mg PO QHS lowers cholesterol 07/13/24 divalproex 125 mg capsule,delayed release sprinkle mg PO seizure prevention 07/13/24 donepezil 10 mg tablet 10 mg PO DAILY dementia 07/13/24 sertraline 25 mg tablet 75 mg PO DAILY depression 07/13/24 sertraline 50 mg tablet 50 mg PO DAILY depression 07/13/24 guaifenesin 1,200 mg tablet, extended release 12 hr (Mucus Relief ER) 1,200 mg PO BID #10 tabs 07/23/24 levofloxacin 750 mg tablet 750 mg PO DAILY #4 tabs 07/23/24 Hospital Course Operations None Procedures None Summary of Care Provided Minutes Spent on Discharge: 32 Hospital Course: Patient presents with cough, vomiting diarrhea and weakness. Patient was found to have bilateral pneumonia on chest x-ray. Patient was started on levofloxacin metronidazole. Patient was on Airvo initially and has since been weaned down. And actually today, the patient was ambulated and did not require oxygen with rest or activity. Patient was found to have norovirus but his symptoms were much improved at that time showed no treatment other than supportive with necessary. For his pneumonia was concerned it could be aspiration given his vomiting but could be gram-negative but patient be discharged Cleta 70 course of antibiotics with levofloxacin. Weight / BMI Weight Weight: 99.6 kg Body Mass Index (BMI) 31.5 ABG / Lab / Microbiology Data 07/23/24 08:14 07/23/24 08:14 Laboratory: Laboratory Results - last 24 hr 07/23/24 08:14: WBC 7.1, RBC 3.62 L, Hgb 12.2 L, Hct 34.9 L, MCV 96.4 H, MCH 33.7 H, MCHC 35.0, RDW Std Deviation 49.1 H, RDW Coeff of Cash 13.8, Plt Count 171, MPV 9.8, Immature Gran % (Auto) 1.400 H, Neut % (Auto) 78.5 H, Lymph % (Auto) 11.8 L, [place] % (Auto) 7.3, Eos % (Auto) 0.7, Baso % (Auto) 0.3, Absolute Neuts (auto) 5.6, Absolute Lymphs (auto) 0.84, Nucleated RBC % 0, Sodium 140, Potassium 3.8, Chloride 105, Carbon Dioxide 24.9, Anion Gap 10, BUN 11, C reatinine 0.61 L, Estim Creat Clear Calc 150.45, Est GFR (MDRD) Non-Af 109, BUN/Creatinine Ratio 17.6, Glucose 111 H, Calcium 8.3 Microbiology: Microbiology 07/20/24 20:00 Blood Culture (Wb) - Arm Left Blood Culture - Preliminary No growth in 48 hours. 07/20/24 20:00 Blood Culture (Wb) - Arm Right Blood Culture - Preliminary No growth in 48 hours. 07/20/24 12:42 Stool Stool Lactoferrin - Final 07/20/24 12:42 Stool Enteric Bacteriology - Final Norovirus 07/21/24 00:45 Sputum, Expectorated/Coughed Gram Stain - Final 07/21/24 00:45 Sputum, Expectorated/Coughed Respiratory Culture - Preliminary 07/20/24 20:30 Urine Catheter - Catheter Urine Culture - Preliminary Culture exhibits no growth. 07/21/24 00:45 Urine Catheter - Catheter Legionella Antigen - Final 07/21/24 00:45 Urine Catheter - Catheter Streptococcus pneumoniae Antigen (M - Final 07/20/24 20:00 Mucosa - Nose SARS-CoV-2, Influenza & RSV (PCR) - Final D/C Instructions Discharge Diet: No restrictions DC O2, CPAP, BIPAP Needs PSN CPAP & BiPAP: BiPAP & CPAP Settings per PSN Mode AIRVO 07/21/24 13:13 Bipap Delivery Device Nasal Pillows 07/21/24 13:13 Fraction of Inspired Oxygen ( 64 07/21/24 13:52 FIO2) Total Flow Rate 40 07/21/24 13:13 Home O2 Discharge instructions: No Meaningful Use Info Meaningful Use Meaningful Use Diagnoses (Choose all that apply): None applicable Ischemic Stroke Statin Dosing Therapy Reference: STATIN DOSE THERAPY REFERENCE: * Patients > 75 years receive moderate or high dose statin therapy. * Patients 75 years or YOUNGER should receive HIGH intensity statin dose unless contraindicated. You will be required to document reason for non-treatment if statin daily dose does not meet guidelines. HIGH DOSE STATIN THERAPY DAILY Atorvastatin > than or = to 40 mg Rosuvastatin > than or = to 20 mg Amlodipine + Atorvastatin > than or = to 2.5/40 mg Ezetimibe + Simvastatin 10/80 mg Simvastatin 80mg Discharge Plan Admission Admit Date/Time: 07/20/24 22:00 Primary Reason for Your Visit: pneumonia Attending Provider: Benjamin Kat Primary Care Provider: Lindsay Rodriguez CLINIC NURSE Consulting Providers: Patricio Mtz Discharge Orders/Prescriptions Prescriptions: New guaifenesin [Mucus Relief ER] 1,200 mg Tablet Extended Release 12hr 1,200 mg PO BID Qty: 10 0RF levofloxacin 750 mg tablet 750 mg PO DAILY Qty: 4 0RF Continued gemfibrozil 600 MG tablet 600 mg PO BIDAC aspirin 81 MG tablet,chewable 81 mg PO DAILY@0800 trazodone 50 MG tablet 50 mg PO QHS PRN PRN (Reason: Insomnia) 0RF alum-mag hydroxide-simeth [Mag-Al Plus Extra Strength] 30 ML suspension 30 ml PO Q6H PRN PRN (Reason: Gastric burning) 0RF menthol-zinc oxide [Calmoseptine] 1 APPLIC ointment 1 applic topical TID 0RF Protocol: *Topical Application Instructions APPLICATION INSTRUCTIONS: APPLY TO EXCORIATED AREAS TO COCCYX/GLUTEAL FOLDS potassium chloride [Klor-Con M20] 20 MEQ tablet 20 meq PO DAILY Qty: 1 0RF atorvastatin 20 mg tablet 20 mg PO QHS donepezil 10 mg tablet 10 mg PO DAILY amlodipine 2.5 mg tablet 2.5 mg PO DAILY sertraline 25 mg tablet 75 mg PO DAILY Patient Comments: TAKE 1 tab by mouth daily, Take with 50mg daily to equal 75mg daily sertraline 50 mg tablet 50 mg PO DAILY Patient Comments: TAKE 1 tab by mouth daily, Take with 25mg daily to equal 75mg daily divalproex 125 mg capsule, delayed rel sprinkle PO Patient Comments: TAKE 11 Capsules by mouth daily, 6 every morning 5 every evening Referrals / Follow Up: Lindsay Rodriguez NP, CLINIC NURSE-C [Primary Care Provider] - Within 2 Weeks Disposition Disposition (needs filled in before D/C Order can be placed): Home, Self Care Charges/Coding Visit Charges Inpatient E&M: 55517 Disch Hosp >30min
--- NOTE | 2024-07-23 12:37 | NURSING ---
Patient had peterson catheter in place upon arrival to shift. It was placed in ED for retention per order. Peterson removed today at 1235, as patient has discharge to go home. Order to discontinue peterson received via phone from MD. Patient will need to urinate prior to going home.
--- NOTE | 2024-07-23 16:12 | PHA.DC_ITS ---
Pharmacy [place] Med Reconciliation Pharmacy Service has performed discharge medication reconciliation for this patient. Medication education papers prepared, patient discharged before I was able to travel [employer]. Medications reviewed. The patient's discharge medication list was reviewed for discrepancies and discrepancies were resolved. Medications at Discharge Home Medications aspirin 81 mg chewable tablet 81 mg PO DAILY@0800 blood thinner 06/02/16 gemfibrozil 600 mg tablet 600 mg PO BIDAC lowers cholesterol 06/02/16 aluminum-mag hydroxide-simethicone 400 mg-400 mg-40 mg/5 mL oral susp (Mag-Al Plus Extra Strength) 30 ml PO Q6H PRN PRN Gastric burning 01/07/18 menthol 0.44 %-zinc oxide 20.6 % topical ointment (Calmoseptine) 1 applic topical TID 01/07/18 potassium chloride 20 mEq tablet,extended release(part/cryst) (Klor-Con M) 20 meq PO DAILY supplement #1 TABLET 01/07/18 trazodone 50 mg tablet 50 mg PO QHS PRN PRN Insomnia 01/07/18 amlodipine 2.5 mg tablet 2.5 mg PO DAILY BP 07/13/24 atorvastatin 20 mg tablet 20 mg PO QHS lowers cholesterol 07/13/24 divalproex 125 mg capsule,delayed release sprinkle mg PO seizure prevention 07/13/24 donepezil 10 mg tablet 10 mg PO DAILY dementia 07/13/24 sertraline 25 mg tablet 75 mg PO DAILY depression 07/13/24 sertraline 50 mg tablet 50 mg PO DAILY depression 07/13/24 guaifenesin 1,200 mg tablet, extended release 12 hr (Mucus Relief ER) 1,200 mg PO BID #10 tabs 07/23/24 levofloxacin 750 mg tablet 750 mg PO DAILY #4 tabs 07/23/24
== END 2024-07-23 15:30 | disposition home or self-care (01) | DRG 193 ==
LOC: ED 20:17 → PCU 22:14
PROVIDERS: Internal Medicine; Physician Assistant; Admitting Provider Physician Assistant; Emergency Provider Emergency Medicine; PCP Nurse Practitioner Family
DX: J18.9 Pneumonia, unspecified organism (principal); J96.01 Acute respiratory failure with hypoxia; I69.354 Hemiplegia and hemiparesis following cerebral infarction affecting left non-dominant side; A08.11 Acute gastroenteropathy due to Norwalk agent; Z51.5 Encounter for palliative care; F03.90 Unspecified dementia, unspecified severity, without behavioral disturbance, psychotic disturbance, mood disturbance, and anxiety; G40.909 Epilepsy, unspecified, not intractable, without status epilepticus; I10 Essential (primary) hypertension; F32.A Depression, unspecified; E86.0 Dehydration; F17.210 Nicotine dependence, cigarettes, uncomplicated; F41.9 Anxiety disorder, unspecified; E78.5 Hyperlipidemia, unspecified; Z66 Do not resuscitate
CPT/HCPCS: 36415; 36600; 51702; 71045; 71260; 74177; 80048; 80053; 81001; 82803; 83605; 83630; 85025; 85610; 85730; 87040; 87070; 87086; 87088; 87205; 87449; 87506; 87631; 92526; 92610; 93005; 94003; 94640; 94660; 94762; 97162; 97166; 97530; 97535; 97802; 99285; Q9967; A4216

== ENCOUNTER 2024-08-27 11:30 | Outpatient (RCR) | payer MEDICARE, MEDICAID, SELFPAY ==
--- NOTE | 2024-07-14 11:22 | HP.PTEVAL ---
Patient's Visit Information Visit Information Visit Information: GABRIELLA HAZEL is a 59 year old M referred to Physical Therapy by GARY Sylvester with a diagnosis of generalizd weakness. Date of Evaluation: 07/14/24 Physical Therapist: Benjamin Marsh, DPT, OCS, CSCS Visit Plan Frequency: 2-3x /Week Duration: 4-6 Weeks Plan: 3x/week for 4-6 weeks I asked him to be 100% comppliant with his walker usage at home due to recent falls, neuroapthy and poor balance and dtr agreeable. Treat with LE adn core strength, postural strength, weight shifting ex, balance ex all to progress to I home program as sedentary lifestyle is not treating him well. Also work on gait safety with balance weaning to cane if/when appropriate Subjective Subjective: doctor PCP sent him for strngthening , fell 2x in bathroom yesterday and went to ER but not injured. 1x slid off the toilet. Got up off floor with bars. Dtr with him states that he has had other falls. he uses cane out of the house but not in the house. One time fell walking across kitchen floor and legs gave out. Hard to get off floor. Has had bad knees for long time/gritty. OA in knees. Knees not painful. 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 Some brain damage since bab y and from stroke. Sleep is OK with trazadone. Regular ex: no Spends day walking around house and dtr says sitting. 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 Lives with brother and his girlfriend and home alone during day sometimes. 2 steps onto porch but does not do basement steps. Railing on front porch.Family does laundry. Basic ADLs: dresses self, bathroom I, showers I with handrail.cooks at stove himself Neuropathic pain. No spinning. Objective Objective: Walks slowly with short steps and neuropathic gait pattern into PT with cane in L UE. Trasnfers with UE I bed and chair. Steps with two rails weakness obvious but able reciprocally up and down slowly without pain. Lumbar AROM mod limitd in all directions standing, hesitant to shift weight. Stand balance is fair without AD statically eo adn ec LE AROM WFL, gastroc adn HS mod to max tight, -40 90/90 tst B. core strength is weak with instability in sitting in UE and LE testing. UE strngth 4- LE knees and ankles 4-, hip abd and flexion and ext 3/5. reeflexes 1/3 patella and achilles is 0/3. sensation diminished in LE feet B to gross light touch. coordination is poor to reciprocal toe and heel tap, able to heel raise and toe raise with balance assist. Balance/Special Test Scores Functional Gait Assessment Score: 16 % Disability: 46.6700 Lower Extremity Functional Score: 41 TUG Test Time Seconds: 25 30 Second Chair Rise Test Seconds: 4 Goals Goal 1:: I appropriate HEP for weight shift, strength general and baance to complete at home to minimize future problems. Goal Time Frame: 4-6 Weeks Goal 2:: 10 on 30 SSTS to show improved mobility Goal Time Frame: 4-6 Weeks Goal 3:: 15 sec on TUG to showi imprved gait. Goal Time Frame: 4-6 Weeks Goal 4:: FGA score 20/30 to show improved balance and safety Goal Time Frame: 4-6 Weeks Goal 5:: Pt. and family feel 50% better in overall mobility Goal Time Frame: 4-6 Weeks Rehabilitation Potential Physical Therapy Diagnosis: weakness and sedentarism and neuropathy limiting comfortable funciton and activity. Rehabilitation Potential: Fair Anticipated Interventions Patient/Client Instruction: Educate patient on: Condition and Plan of Care For the Purpose of:: To improve nutrient delivery to tissue, To improve muscle performance and motor function, To increase tolerance to activity/condition/position, To improve gait and locomotor functions and To improve safety Therapeutic Exercise to Include: Strength training, Balance training, Postural training, Flexibilty training, Active ROM and Dynamic Lumbar Stabilization For the Purpose of:: To improve nutrient delivery to tissue, To improve muscle performance and motor function, To increase tolerance to activity/condition/position, To improve ability of physical actions for home/community/work/leisure, To improve gait and locomotor functions and To improve safety Functional Training to Include: Gait training For the Purpose of:: To improve safety Text: Thank you for the opportunity to evaluate your patient. For Medicare and Medicare HMO plans, please review the plan of care and approve it. It will need to be FAXED BACK to us at [phone] for Medicare purposes. For Medicare only, by signing this I certify the plan of care. Please let me know if there are questions or concerns regarding this plan of care. Physician Signature: Date:
--- NOTE | 2024-08-27 12:19 | HP.PTDCSUM ---
Discharge Summary D/C summary: It has been my pleasure to treat GABRIELLA HAZEL referred by Lindsay Rodriguez NP-C, with the diagnosis of generalizd weakness for a total of 13 visit(s). Discharge Date: 08/27/24 Please see the following information for a summary of their discharge status. Subjective Subjective: Ready to b done. Stronger than he used to be. I can squat now without a problem. Balance is OK. Using wh walker to get around for safety. Activities at home are pretty normal. Wants to ride a pedal bike but has not in 2006. No falls lately, Doing HEP regularly Overall Improvement % Improvement: 100 Objective Objective/Function: improving 30 sSSTS and FGA, LEFS and TUG are the same. PT feeling much better and willing to continue via HEP. Goals Goal 1:: I appropriate HEP for weight shift, strength general and baance to complete at home to minimize future problems. Goal Progress: Goal Met Goal 2:: 10 on 30 SSTS to show improved mobility Goal Progress: Goal Met Goal 3:: 15 sec on TUG to showi imprved gait. Goal Progress: Not Progressing Goal 4:: FGA score 20/30 to show improved balance and safety Goal Progress: Goal Met Goal 5:: Pt. and family feel 50% better in overall mobility Goal Progress: Goal Met Plan Plan: d/c D/C Information Discharge Comments: Continue via HEP d/c sentence: If there are questions or concerns regarding this patient's physical therapy, please feel free to call me at [phone]. Thank you for the referral of this patient. Sincerely, Benjamin Marsh, DPT, OCS, CSCS Balance/Gait/Functional tests Balance/Special Test Scores Functional Gait Assessment Score: 21 % Disability: 30.0000 Lower Extremity Functional Score: 41 TUG Test Time Seconds: 31 Tug Test: 20-30sec.=variable mobility 30 Second Chair Rise Test Seconds: 11 Improvement % Improvement: 100
== END 2024-08-27 12:50 | disposition home or self-care (01) ==
LOC: PT 11:30
PROVIDERS: PCP Nurse Practitioner Family; Referring Provider Nurse Practitioner Family; Visit Provider Nurse Practitioner Family
DX: R53.1 Weakness (principal)
CPT/HCPCS: 97110; 97162; 97164